=== PATIENT | male | born 1985 | race Caucasian/White ===

== ENCOUNTER 2025-05-08 06:58 | Inpatient (IN) | payer MEDICAID, SELFPAY ==
[2025-05-08] VITALS (15 sets, daily range): BP systolic 119–146; BP diastolic 68–97; PULSE 72–114; RESP 12–22; TEMP 36.8–38.3; O2SAT 95–100; BMI 25.6; BMI 25.1
--- NOTE | ~2025-05-08 | CT_ITS ---
EXAMINATION: CT HAND WITH IV CONTRAST LEFT HISTORY: c/f abscess COMPARISON: Previous x-rays of the left humerus and forearm, CT of the left forearm and left upper extremity venous ultrasound from the same day TECHNIQUE: Axial images through the hand were performed following 85 mL Omnipaque 350 IV contrast. Sagittal and coronal reconstructions on the technologist workstation were performed. FINDINGS: There is diffuse subcutaneous edema. There is fluid seen in the carpal tunnel surrounding the flexor tendon sheaths. No abscess is seen. No fracture, dislocation or x-ray evidence of osteomyelitis. No soft tissue foreign body. Vascular structures are normal. CT/CT hand LT w IV con IMPRESSION: Diffuse subcutaneous edema. Fluid seen in the carpal tunnel surrounding the flexor tendon sheath. No abscess. Electronically signed by: Kely Pink MD 05/08/2025 01:05 PM [facility]
--- NOTE | ~2025-05-08 | XR_ITS ---
EXAMINATION: XR HUMERUS LEFT, XR FOREARM 2 VIEWS LEFT HISTORY: pain and swelling COMPARISON: There are no prior studies available for comparison. FINDINGS: AP and lateral views of the left humerus and forearm are submitted. Osseous mineralization is normal. There is no fracture or dislocation. The visualized portions of the shoulder, elbow, and wrist joint spaces are preserved. There is diffuse soft tissue swelling of the distal arm and proximal forearm. XR/XR forearm LT 2V IMPRESSION: Diffuse soft tissue swelling of the distal arm and proximal forearm. No osseous abnormality is identified. Electronically signed by: Anthony Ortez MD 05/08/2025 08:24 AM [facility]
--- NOTE | ~2025-05-08 | CT_ITS ---
EXAMINATION: CT FOREARM WITH CONTRAST, LEFT CLINICAL INFORMATION: Abscess. Pain. COMPARISON: Previous x-rays from the same day and ultrasound of the veins of the upper extremity from the same day TECHNIQUE: Axial images through the left forearm following 85 mL of Omnipaque 350 IV contrast . Sagittal and coronal reconstructions obtained. This CT examination was performed using dose optimization techniques as appropriate, variously including the following: *Automated exposure control *Adjustment of mA and/or kV according to patient size (this includes techniques or standardized protocols for targeted exams where dose is matched to indication/reason for exam; i.e. extremities or head) *Use of iterative reconstruction technique FINDINGS: Multiloculated fluid collections with enhancing wall in the flexor compartment muscles compatible with abscess(es). This appears more radially distally in the forearm and more centrally proximally in the forearm. This involves the pronator teres, superficial flexor digitorum and flexor carpi radialis muscles. This measures up to 16 cm in length. There is diffuse subcutaneous edema. There is a small lymph node in the upper arm adjacent to the cephalic vein. The joint spaces are normal. No fracture dislocation or joint effusion is seen. There is no x-ray evidence of osteomyelitis. No soft tissue foreign body. Vascular structures are patent. CT/CT forearm LT w IV con IMPRESSION: Large multiloculated abscess(es) in the flexor compartment muscles of the left forearm. Diffuse subcutaneous edema. Electronically signed by: Kely Pink MD 05/08/2025 01:06 PM [facility]
--- NOTE | ~2025-05-08 | XR_ITS ---
EXAMINATION: XR HUMERUS LEFT, XR FOREARM 2 VIEWS LEFT HISTORY: pain and swelling COMPARISON: There are no prior studies available for comparison. FINDINGS: AP and lateral views of the left humerus and forearm are submitted. Osseous mineralization is normal. There is no fracture or dislocation. The visualized portions of the shoulder, elbow, and wrist joint spaces are preserved. There is diffuse soft tissue swelling of the distal arm and proximal forearm. XR/XR humerus LT IMPRESSION: Diffuse soft tissue swelling of the distal arm and proximal forearm. No osseous abnormality is identified. Electronically signed by: Anthony Ortez MD 05/08/2025 08:24 AM [facility]
--- NOTE | ~2025-05-08 | US_ITS ---
EXAMINATION: US UPPER EXTREMITY VEINS LIMITED LEFT HISTORY: pain and swelling, IV drug use COMPARISON: There are no prior studies available for comparison. FINDINGS: There is no evidence of acute DVT in the left upper extremity including the jugular vein, subclavian vein, axillary vein, and cephalic veins. There is limited evaluation of the brachial and basilic veins. The ulnar vein is not seen. There is normal compression, color and spectral Doppler appearance of the visualized deep venous system of the left upper extremity. US/US venous duplex UE LT IMPRESSION: No definite evidence of acute DVT in the left upper extremity. Electronically signed by: Anthony Ortez MD 05/08/2025 09:00 AM [facility]
--- NOTE | 2025-05-08 07:08 | ED.GENADULT ---
HPI - General Adult General Chief complaint: Extremity Injury, Upper Stated complaint: L HAND SWELLING S/P IVD USE,?'S MISSED VEIN Time Seen by Provider: 05/08/25 07:05 Source: patient, RN notes reviewed and old records reviewed Mode of arrival: ambulatory Limitations: no limitations History of Present Illness ED Provider: Kim [facility] narrative: Patient is a 39-year-old right hand dominant male with history of IV drug use presenting to the emergency department with complaint of 2 days of left hand pain and swelling. States that he injected into the distal radius area of his wrist and since then has been having pain and swelling. Unsure fevers. Reporting severe pain, very restless. He reports some tingling to hand. Denies any chest pain, shortness of breath, palpitations. MD complaint: Left arm pain Onset (ago): day(s) Related Data Allergies Allergy/AdvReac Type Severity Reaction Status Date / Time Unable to Assess Allergy Verified 05/08/25 07:13 Review of Systems Review of Systems: As per HPI Yes all other systems are reviewed and are negative Constitutional: Constitutional: Reports as per HPI [facility] Social History Social History Substance Use Type: Crack/Cocaine and Heroin Physical Exam ED Vital Signs: Vital Signs - 24 hr 05/08/25 07:09 05/08/25 07:14 05/08/25 08:52 Temperature 100.0 F 100.0 F 98.8 F Pulse Rate 100 100 80 Respiratory Rate 20 20 20 Blood Pressure 134/70 134/70 123/75 Pulse Oximetry 95 95 98 Oxygen Delivery Method Room Air Room Air Room Air BMI result Body Mass Index 25.6 Vital signs have been reviewed and appear to be correct. Blood pressure normal. Heart rate normal. Respiratory rate normal. Temperature elevated. Oxygen saturation normal. Const General: cooperative and no acute distress Orientation/consciousness: oriented to person, oriented to place, oriented to time and patient oriented x3 HENMT Head: Yes normocephalic and Yes atraumatic Ears: external ears normal General nose exam: Normal external nose present Face and sinus: Yes face symmetric Mouth: oropharynx normal and moist mucous membranes Throat: Yes uvula midline Eyes Pupils: Equal, round and reactive pupils present Neck Neck: Yes normal visual inspection and Yes supple Resp Effort & Inspection: normal respiratory effort and able to speak in complete sentences Auscultation: clear to auscultation bilaterally Cardio Rate: regular rate Rhythm: regular rhythm Heart sounds: S1 normal heart sound present and S2 normal heart sound present GI Palpation (GI): Soft to palpation and nontender Auscultation: normoactive bowel sounds General: Yes no CVA tenderness Back/Spine/Pelvis Back: no CVA tenderness Skin General skin exam: elasticity normal and turgor normal Neuro General: oriented to person, oriented to place, oriented to time, patient oriented x3, moves all extremities, no focal motor deficits and CN's II-XI intact bilaterally Cranial nerves: Yes Equal, round and reactive pupils present Cognition (Neuro): normal cognition Extrem Other: General: Yes full ROM, Yes no pedal edema and Yes no calf tenderness Left upper extremity: shoulder/upper arm Details: tenderness, swelling (to mid upper arm) and warmth, elbow/forearm Details: tenderness, swelling, warmth and distal pulses intact, wrist (puncture wounds distal radial aspect) and hand Details: normal capillary refill, neurosensory exam normal, tenderness (diffuse), vascular exam Details: radial pulse present and normal capillary refill, abnormal ROM of finger (decreased ROM due to pain and swelling), warmth, swelling and puncture wound (multiple); abnormal to inspection Medications Administered Generic Name Dose Route Start Last Admin Trade Name Freq PRN Reason Stop Dose Admin Vancomycin HCl 2,000 mg in 500 mls @ 250 mls/hr 05/08/25 07:30 05/08/25 07:43 Vancomycin/Ns IV 05/08/25 09:29 250 mls/hr ONCE ONE Administration Discontinued Medications Generic Name Dose Route Start Last Admin Trade Name Freq PRN Reason Stop Dose Admin Hydromorphone HCl 1 mg 05/08/25 07:34 05/08/25 07:43 Hydromorphone Hcl 1 Mg/Ml Syringe IVPUSH 05/08/25 07:35 1 mg ONCE ONE Administration Protocol Acetaminophen 1,000 mg in 100 mls @ 400 mls/hr 05/08/25 07:34 05/08/25 08:13 Ofirmev IV 05/08/25 07:48 Infused ONCE ONE Infusion Ketamine HCl 25 mg 05/08/25 07:36 05/08/25 08:31 Ketamine Hcl/Ns 100 Mg/10 Ml Syringe IVPUSH 05/08/25 07:37 Not Given ONCE ONE Ketamine HCl 25 mg 05/08/25 08:15 05/08/25 08:27 Ketamine Hcl/Ns 50 Mg/5 Ml Syringe IVPUSH 05/08/25 08:16 25 mg ONCE ONE Administration Medical Decision Making Medical Decision Making [facility] Narrative: Patient is a 39-year-old right hand dominant male with history of IV drug use presenting to the emergency department with complaint of 2 days of left hand pain and swelling. On exam patient is awake, A+Ox3, borderline tachycardic, borderline febrile, normal neurological exam without focal deficits, physical exam findings as above. Given reported symptoms and physical exam findings, initial differential includes but is not limited to cellulitis, deep space infection, DVT, soft tissue abscess, sepsis/bacteremia. Low suspicion for compartment syndrome at this time as patient has full sensation distally, low suspicion for necrotizing fasciitis currently as patient is without notable skin necrosis, bullae, cutaneous numbness, crepitus. Labs notable for leukocytosis with elevated ESR and CRP, normal lactic. X-ray forearm and upper arm notable for diffuse soft tissue swelling without evidence of osteomyelitis or deep space infection. Left upper extremity ultrasound is without evidence of DVT. My interpretation is in agreement with the radiologist's interpretation. IV antibiotics orered as well as pain control. Inpatient admission accepted by FRANCISCO Quinonez. Differential Diagnosis Differential Diagnoses: The differential diagnosis associated with the presentation includes as per [facility] Admission/Observation Consideration of admission/observation: Escalation of care including admission/observation considered Consult Healthcare Provider Management of the patient was discussed with: Hospitalist Lab Data 05/08/25 07:26 05/08/25 07:26 Labs: Lab Results 05/08/25 Range/Units 07:26 WBC 15.6 H (4.8-10.8) X10*3/uL RBC 3.77 L (4.60-5.80) X10*6/uL Hgb 8.3 L (14.0-18.0) g/dl Hct 26.3 L (42.0-52.0) % MCV 69.8 L (80.0-98.0) fL MCH 22.0 L (27.0-33.0) pg MCHC 31.6 (31.0-36.0) g/dl RDW 15.2 (11.0-16.0) % Plt Count 171 (160-400) X10*3/uL MPV 8.4 L (9.4-12.4) fL Immature Gran % (Auto) 2.7 H (0.0-0.4) % Neut % (Auto) 79.7 H (45-73) % Lymph % (Auto) 6.7 L (20-40) % [place] % (Auto) 10.7 (2-11) % Eos % (Auto) 0.1 (0-4) % Baso % (Auto) 0.1 (0-2) % Lymph # (Auto) 1.1 L (1.2-4.9) X10*3/uL [place] # (Auto) 1.7 H (0.1-1.2) X10*3/uL Eos # (Auto) 0.0 (0.0-0.4) X10*3/uL Baso # (Auto) 0.0 (0.0-0.2) X10*3/uL Abs Immat Gran (auto) 0.42 H (0.00-0.03) X10*3/uL Absolute Neuts (auto) 12.4 H (2.0-8.3) x10*3/uL Absolute Nucleated RBC 0.000 (0.0-0.012) X10*3/uL Nucleated RBC % (auto) 0.0 (0.0-0.2) /100WBC Smear Tech's Comments VERIFIED ESR 74 H (1-15) MM/HR Sodium 131 L (135-145) mmol/L Potassium 3.6 (3.3-5.1) mmol/L Chloride 102 (96-108) mmol/L Carbon Dioxide 24 (22-29) mmol/L Anion Gap 9 L (12-20) BUN 7 L (9-16) mg/dL Creatinine 0.65 (0.5-1.4) mg/dL Estim Creat Clear Calc 155.9 Estimated GFR > 60 Random Glucose 131 H (60-115) mg/dL Lactic Acid 1.4 (0.5-2.0) mmol/L Calcium 8.8 (8.4-10.2) mg/dL Total Bilirubin 0.5 (0.0-1.0) mg/dL AST 43 H (5-37) U/L ALT 32 (0-40) U/L Alkaline Phosphatase 93 (39-117) U/L C-Reactive Protein 24.83 H (< or = 0.50) mg/dL Total Protein 6.3 L (6.5-8.0) g/dL Albumin 3.3 L (3.5-5.0) g/dL External Record Review External record reviewed: Inpatient record, Office record and Outpatient record Prescription Management I considered prescription management with: Antibiotic Critical Care Time Critical Care Time Critical Care Time: Yes Total Critical Care Time: 49 Attestation: I have personally provided critical care time exclusive of time spent on separately billable procedures. Time includes review of lab data, radiology results, discussion with consultants, and monitoring for potential decompensation. Intervention performed as documented. Discharge Plan Discharge Patient Disposition: Admitted As Inpatient Print Language: Kazakh
[2025-05-08 07:37] LABS: Hematocrit 26.3 % (42.0-52.0); Hemoglobin 8.3 g/dl (14.0-18.0); Imm Gran Abs Auto 0.42 X10*3/uL (0.00-0.03); Imm Gran Pct Auto 2.7 % (0.0-0.4); Lymphocytes Absolute Auto 1.1 X10*3/uL (1.2-4.9); MANUAL DIFF FLAG SCAN; Mean Corpuscular HGB Conc 31.6 g/dl (31.0-36.0); Mean Corpuscular Hemoglobin 22.0 pg (27.0-33.0); Mean Corpuscular Volume 69.8 fL (80.0-98.0); NRBC Abs Auto 0.000 X10*3/uL (0.0-0.012); NRBC Pct Auto 0.0 /100WBC (0.0-0.2); Platelet Count 171 X10*3/uL (160-400); Red Blood Count 3.77 X10*6/uL (4.60-5.80); SCAN SMEAR FLAG 1; White Blood Count 15.6 X10*3/uL (4.8-10.8)
[2025-05-08] MEDS: vancomycin/NS 2,000 MG/500 ML PLAST..BAG 250 MG IV (07:43)
--- NOTE | 2025-05-08 07:48 | PC.NURSE ---
Patient presents to ED c/o left hand swollen Patient relapsed 2 months ago Patient has been injecting heroin into left hand 2 days ago pain and swelling began Left hand is red,swollen, and warm. Swelling extends up left arm past elbow oral temp 100.0 +CMS limited ROM d/t swelling patient notes some numbness IV 18G RAC blood collected / sent provider in to see patient Patient awaiting xrays
[2025-05-08 08:01] LABS: Alanine Aminotransferase 32 U/L (0-40); Albumin Level 3.3 g/dL (3.5-5.0); Alkaline Phosphatase 93 U/L (39-117); Anion Gap 9 (12-20); Aspartate Amino Transferase 43 U/L (5-37); Blood Urea Nitrogen 7 mg/dL (9-16); Calcium 8.8 mg/dL (8.4-10.2); Carbon Dioxide 24 mmol/L (22-29); Chloride 102 mmol/L (96-108); Creatinine Clr Calc Pharmacy 155.9; Estimated Glomerular Filt Rate > 60; Potassium 3.6 mmol/L (3.3-5.1); Sodium 131 mmol/L (135-145); Total Protein 6.3 g/dL (6.5-8.0)
[2025-05-08] MEDS: Ketamine HCl/NS 50 MG/5 ML SYRINGE 25 MG IVPUSH (08:27)
--- NOTE | 2025-05-08 09:59 | PM.IMHP ---
History of Present Illness Date of Service: 05/08/25 Attending physician on admission: Milka Mcghee Chief Complaint: left arm pain This is a 39 year old male with history of IVDU who comes to the emergency department with pain in his left arm. Patient reports 12 years of sobriety and recently relapsed 2-3 weeks ago. He has been injecting both heroin and cocaine. For the past few days he has noted increase in redness and swelling of his left arm. He has had increased pain and decreased range of motion. He denies any associated fever or chills. His pain, redness and swelling continued to progress and today he presented for evaluation. On arrival he had tachycardia, low-grade fever. Lab work significant for elevated white blood cell count of 15.6. Lactic acid within normal limits at 1.4. Inflammatory markers including ESR and CRP were elevated with ESR of 74 and CRP of 24.8. Plan film xray of the humerous and forearm showed diffuse soft tissue swelling of the distal arm and proximal forearm. An ultrasound was negative for DVT in the left upper extremity. Patient received IV Zosyn and vancomycin as well as IV Dilaudid and ketamine. patient reports significant pain. Review of Systems Review of Systems: Yes all other systems are reviewed and are negative Constitutional: Constitutional: Denies chills and Denies fever(s) Cardiovascular: Cardiovascular: Denies chest pain and Denies palpitations Gastrointestinal: Gastrointestinal: Denies abdominal pain, Denies diarrhea, Denies nausea and Denies vomiting Endocrine: Endocrine: Denies palpitations [facility] Medical History IVDU (intravenous drug user) Social History Smoked in Last 30 Days: Yes Use of substances other than those prescribed or required for medical reasons: Yes Substance Use Type: Crack/Cocaine and Heroin Substance Use Frequency: Daily Advance Directives: No Advance Directives Information Provided: No Do you have a plan to hurt others: No Plan Meds Allergies Allergy/AdvReac Type Severity Reaction Status Date / Time Unable to Assess Allergy Verified 05/08/25 07:13 Active Medications: Current Medications Acetaminophen (Acetaminophen 325 Mg Tablet) 650 mg PO Q6H PRN PRN Reason: Pain, Mild 1-3,fever,headache Calcium Carbonate (Calcium Carbonate 750 Mg Tab.Chew) 750 mg PO Q4H PRN PRN Reason: Heartburn Enoxaparin Sodium (Enoxaparin Sodium 40 Mg/0.4 Ml Syringe) 40 mg SUBCUT Q24H CHARLIE Hydromorphone HCl (Hydromorphone Hcl 1 Mg/Ml Syringe) 0.5 mg IVPUSH Q3H PRN; Protocol PRN Reason: Pain, Severe (Pain Scale 7-10) Lactated Ringer's (Lr) 1,000 mls @ 125 mls/hr IVCONT .Q8H CHARLIE Piperacillin Sod/Tazobactam (Sod 3.375 gm/ Sodium Chloride) 50 mls @ 100 mls/hr IV Q6H CHARLIE Magnesium Hydroxide (Milk Of Magnesia 30 Ml Oral.Susp) 30 ml PO DAILY PRN PRN Reason: Constipation Melatonin (Melatonin 3 Mg Tablet) 6 mg PO BEDTIME PRN PRN Reason: Insomnia Ondansetron HCl (Ondansetron Hcl 4 Mg/2 Ml Vial) 4 mg IVPUSH Q8H PRN PRN Reason: Nausea and Vomiting Oxycodone HCl (Oxycodone Hcl Immed Release 5 Mg Tablet) 5 mg PO Q6H PRN PRN Reason: Pain, Moderate(Pain Scale 4-6) Pharmacy Consult (Consult Rx Vancomycin Dosing) 1 each MISCELLANE DAILY PRN PRN Reason: Consult order Sodium Chloride (0.9 % Sodium Chloride Flush 3 Ml Syringe) 3 ml IVFLUSH QSHIFT [facility] Home Medications ?Medication ?Instructions ?Recorded ?Confirmed ?Last Taken ?Type No Known Home Meds 05/08/25 Unknown History Physical Exam Vital Signs and Narrative: Vital Signs: Last Vital Signs Temp 98.8 F 05/08/25 08:52 Pulse 80 05/08/25 08:52 Resp 20 05/08/25 08:52 BP 123/75 05/08/25 08:52 Pulse Ox 98 05/08/25 08:52 O2 Del Method Room Air 05/08/25 08:52 BMI result Body Mass Index 25.6 Const: Other: appears uncomfortable General: alert and awake Nutritional Appearance: average body habitus Orientation/consciousness: patient oriented x3 Resp: Effort & Inspection: normal respiratory effort, able to speak in complete sentences, no respiratory distress and no use of accessory muscles Cardio: Rate: tachycardic GI: Palpation (GI): Soft to palpation Skin: Other: Left arm with extensive edema from mid-humerus down to hand; erythema extends over the same area covering >50% of the LUE; limited ROM at the elbow and wrist. no obvious area of fluctuance; numerous injection sites at left hand and AC Neuro: General: patient oriented x3 Extrem: Other: able to move all 4 extremities; limitations to LUE as above Results Labs 05/08/25 07:26 05/08/25 07:26 Labs: Laboratory Results - last 24 hr 05/08/25 07:26 MCV 69.8 L MCH 22.0 L MCHC 31.6 RDW 15.2 Plt Count 171 MPV 8.4 L Immature Gran % (Auto) 2.7 H Neut % (Auto) 79.7 H Lymph % (Auto) 6.7 L [place] % (Auto) 10.7 Eos % (Auto) 0.1 Baso % (Auto) 0.1 Lymph # (Auto) 1.1 L [place] # (Auto) 1.7 H Eos # (Auto) 0.0 Baso # (Auto) 0.0 Abs Immat Gran (auto) 0.42 H Absolute Neuts (auto) 12.4 H Absolute Nucleated RBC 0.000 Nucleated RBC % (auto) 0.0 Smear Tech's Comments VERIFIED ESR 74 H Anion Gap 9 L Estim Creat Clear Calc 155.9 Estimated GFR > 60 Random Glucose 131 H Lactic Acid 1.4 Calcium 8.8 Total Bilirubin 0.5 AST 43 H ALT 32 Alkaline Phosphatase 93 C-Reactive Protein 24.83 H Total Protein 6.3 L Albumin 3.3 L Imaging Radiologist's Impressions: Impressions Forearm X-Ray 05/08/25 08:15 IMPRESSION: Diffuse soft tissue swelling of the distal arm and proximal forearm. No osseous abnormality is identified. Electronically signed by: Anthony Ortez MD 05/08/2025 08:24 AM EST RP Humerus X-Ray 05/08/25 08:18 IMPRESSION: Diffuse soft tissue swelling of the distal arm and proximal forearm. No osseous abnormality is identified. Electronically signed by: Anthony Ortez MD 05/08/2025 08:24 AM EST RP Venous Duplex 05/08/25 08:31 IMPRESSION: No definite evidence of acute DVT in the left upper extremity. Electronically signed by: Anthony Ortez MD 05/08/2025 09:00 AM EST RP Assessment and Plan (1) Cellulitis of arm, left: Status: Acute Plan This is a 39 year old male with history of IVDU who presents with several days of left arm and hard swelling, redness and pain Sepsis due to Left arm/hand cellulitis due to underlying IVDU with recent injection of heroin/cocaine into affected extremity no severe features area of cellulitis involves entire hand and extends to the upper arm covering more then 50 % of the LUE due to extensive swelling, will obtain CT scan to rule out deeper infection no evidence of compartment syndrome at this time continue IV vanco and zosyn started in the ED ortho consult pain control Mild rhabdomyolysis cpk 532 renal function wnl IVF, repeat in AM Mild Hyponatremia sodium 131, trend levels Microcytic anemia unknown chronicity with no baseline H/H for comparison above transfusion threshold at this time check iron studies follow CBC IVDU addiction medicine consult dvt ppx - lovenox code status - full code Patient will likely require 2 midnight stay in the hospital for management of left hard/arm cellulitis requring IV antibiotics and specialist evaluation Quality Stroke Does the patient have a stroke diagnosis?: No VTE Prior VTE?: No VTE Risk Level:: Medical - moderate - high VTE Device Contraindication: N/A - Device Ordered VTE Drug Contraindication: N/A - Med Ordered
[2025-05-08] MEDS: Lactated Ringers 1,000 ML 125 ML IVCONT ×2 (10:06→17:08)
--- NOTE | 2025-05-08 10:18 | PHA.PROG ---
Admission Date/Time: May 08, 2025 09:34 Indication: Skin Weight in k kg Adjusted body weight in Kg: [place] body weight in Kg: Obesity Dosing Indication % IBW: Serum Creatinine - Last 168 Hours 05/08/25 07:26 Creatinine 0.65 Estimated CrCl and GFR - Last 168 Hours 05/08/25 07:26 Estim Creat Clear Calc 155.9 Estimated GFR > 60 Vancomycin Loading Dose: 2000 mg Current Vancomycin Dosing Regimen: 1250mg q12h Vancomycin Monitoring using AUC goal of 400 - 600 range with trough as surrogate marker: 459 mg/L*hr or trough 13.2 mg/L Date and Time for next Vancomycin Level to be drawn: 05/09/25 @ 1700 Pharmacist Comments on Vancomycin Plan: Vancomycin dosing will take advantage of [employer] as a clinical decision support tool that uses Bayesian modeling to calculate individual patient's pharmacokinetic parameters and forecast the patient's drug concentration time course with the target goal AUC 24 range of 400 - 600 mg/L/hr.
[2025-05-08 11:01] LABS: Iron 8 mcg/dL (45-160); Percent Iron Saturation 3 % (15-50); Total Iron Binding Capacity 255 mcg/dL (228-428); Unsaturated Iron Binding 247 ug/dL
[2025-05-08 11:15] LABS: Ferritin 182 ng/mL (20-250)
--- NOTE | 2025-05-08 12:01 | PM.CNOR ---
History of Present Illness HPI Consult date: 05/08/25 Chief complaint: cellulitis Narrative: Patient is a 39-year-old male with past medical history of IV drug use who presents to the emergency department for proximally 2 days of significant pain, redness, swelling of the left wrist and forearm Patient reports that approximately 3-4 days ago, he did attempt injection into this area, and over the last 2-3 days he has noticed worsening redness, swelling, pain in the left wrist, that has now extending to the left forearm all the way up to the elbow Patient states that he is in severe pain in the left wrist, and is unable to move the left wrist, elbow, hand without pain Patient states that he does have some slightly diminished sensation in the left hand 2+ radial pulses in the ED Capillary refill brisk in the ED No other acute complaints or concerns at this time Review of Systems Review of Systems: Yes all other systems are reviewed and are negative PMFSH Past Medical History Medical History IVDU (intravenous drug user) Social History Social History Patient Tobacco Use Status: Tobacco use Unknown Smoked in Last 30 Days: Yes Use of substances other than those prescribed or required for medical reasons: Yes Substance Use Type: Crack/Cocaine and Heroin Substance Use Frequency: Daily Advance Directives: No Advance Directives Information Provided: No Do you have a plan to hurt others: No Plan Nutrition Risks: No Nutritional Risk Meds Allergies Allergy/AdvReac Type Severity Reaction Status Date / Time Unable to Assess Allergy Verified 05/08/25 07:13 Active Medications: Current Medications Acetaminophen (Acetaminophen 325 Mg Tablet) 650 mg PO Q6H PRN PRN Reason: Pain, Mild 1-3,fever,headache Calcium Carbonate (Calcium Carbonate 750 Mg Tab.Chew) 750 mg PO Q4H PRN PRN Reason: Heartburn Enoxaparin Sodium (Enoxaparin Sodium 40 Mg/0.4 Ml Syringe) 40 mg SUBCUT Q24H CHARLIE Last Admin: 05/08/25 11:29 Dose: 40 mg Hydromorphone HCl (Hydromorphone Hcl 1 Mg/Ml Syringe) 0.5 mg IVPUSH Q3H PRN; Protocol PRN Reason: Pain, Severe (Pain Scale 7-10) Lactated Ringer's (Lr) 1,000 mls @ 125 mls/hr IVCONT .Q8H [facility] Last Admin: 05/08/25 10:06 Dose: 125 mls/hr Piperacillin Sod/Tazobactam (Sod 3.375 gm/ Sodium Chloride) 50 mls @ 100 mls/hr IV Q6H [facility] Vancomycin HCl 1,250 mg/ (Sodium Chloride) 250 mls @ 166.667 mls/hr IV Q12H [facility] Magnesium Hydroxide (Milk Of Magnesia 30 Ml Oral.Susp) 30 ml PO DAILY PRN PRN Reason: Constipation Melatonin (Melatonin 3 Mg Tablet) 6 mg PO BEDTIME PRN PRN Reason: Insomnia Ondansetron HCl (Ondansetron Hcl 4 Mg/2 Ml Vial) 4 mg IVPUSH Q8H PRN PRN Reason: Nausea and Vomiting Oxycodone HCl (Oxycodone Hcl Immed Release 5 Mg Tablet) 5 mg PO Q6H PRN PRN Reason: Pain, Moderate(Pain Scale 4-6) Pharmacy Consult (Consult Rx Vancomycin Dosing) 1 each MISCELLANE DAILY PRN PRN Reason: Consult order Sodium Chloride (0.9 % Sodium Chloride Flush 3 Ml Syringe) 3 ml IVFLUSH QSHIFT [facility] Home Medications ?Medication ?Instructions ?Recorded ?Confirmed ?Last Taken ?Type No Known Home Meds 05/08/25 Unknown History Physical Exam Vital Signs: Vital Signs: Last Vital Signs Temp 98.8 F 05/08/25 10:09 Pulse 72 05/08/25 10:09 Resp 16 05/08/25 10:09 BP 119/79 05/08/25 10:09 Pulse Ox 98 05/08/25 10:09 O2 Del Method Room Air 05/08/25 10:09 BMI result Body Mass Index 25.6 Extrem: Other: Patient is alert, oriented, and in no acute distress. Neuro: Diminished sensation of the tips of all digits of the left hand at this time Vascular: Cap refill brisk Pain: Very significant tenderness to palpation of the volar aspect of the left wrist extending into the left forearm Mild tenderness to palpation noted of the dorsal aspect of the left wrist and forearm No pain with axial loading of the left wrist No tenderness to palpation of the digits of the left hand ROM: Patient is able to flex and extend the digits of the left hand, is unable to make a closed fist, likely due to swelling Skin: Small abrasions noted throughout the left wrist and forearm General: Very significant edema and erythema noted of the left wrist and forearm, worst on the volar aspect and distal This edema and erythema does extend all the way up to the proximal arm Psych: Appears grossly normal Affect normal Attitude cooperative Results Labs 05/08/25 07:26 05/08/25 07:26 Labs: Abnormal lab results 05/08/25 Range/Units 07:26 WBC 15.6 H (4.8-10.8) X10*3/uL RBC 3.77 L (4.60-5.80) X10*6/uL Hgb 8.3 L (14.0-18.0) g/dl Hct 26.3 L (42.0-52.0) % MCV 69.8 L (80.0-98.0) fL MCH 22.0 L (27.0-33.0) pg MPV 8.4 L (9.4-12.4) fL Immature Gran % (Auto) 2.7 H (0.0-0.4) % Neut % (Auto) 79.7 H (45-73) % Lymph % (Auto) 6.7 L (20-40) % Lymph # (Auto) 1.1 L (1.2-4.9) X10*3/uL [place] # (Auto) 1.7 H (0.1-1.2) X10*3/uL Abs Immat Gran (auto) 0.42 H (0.00-0.03) X10*3/uL Absolute Neuts (auto) 12.4 H (2.0-8.3) x10*3/uL ESR 74 H (1-15) MM/HR Sodium 131 L (135-145) mmol/L Anion Gap 9 L (12-20) BUN 7 L (9-16) mg/dL Random Glucose 131 H (60-115) mg/dL Iron 8 L (45-160) mcg/dL % Saturation 3 L (15-50) % AST 43 H (5-37) U/L Total Creatine Kinase 532 H (38-174) U/L C-Reactive Protein 24.83 H (< or = 0.50) mg/dL Total Protein 6.3 L (6.5-8.0) g/dL Albumin 3.3 L (3.5-5.0) g/dL H & H 05/08/25 Range/Units 07:26 Hgb 8.3 L (14.0-18.0) g/dl Hct 26.3 L (42.0-52.0) % All other labs normal. Diagnostic results Wrist/Hand x-ray: report reviewed and image reviewed Wrist/Hand CT: report reviewed and image reviewed Assessment and Plan (1) Abscess of left forearm: Status: Acute Plan 1. Large abscess of the left forearm Ongoing for approximately 2-3 days Imaging is reviewed and case was discussed with Dr. Mariano, who was available to see the patient with me today, and a collaborative treatment plan was formed: I educated the patient about the condition. I discussed both operative and nonoperative treatment options. The patient would like to proceed with surgery. The risks and benefits of operative treatment were discussed with the patient and the patient wishes to proceed with surgery. These risks include, but are not limited to, risk of damage to blood vessels, nerves, tendons, infection, recurrence, incomplete relief of preoperative symptoms, persistent pain, possible need for further surgery, and the risks associated with regional blocks and/or anesthesia. Plan is to take the patient to the operating room at some point in the next few weeks for the following procedures: 1. Left arm I and D under general anesthesia Patient has not eaten or drank anything since approximately 02:00, NPO for surgery later today Continue IV antibiotics in the meantime Procedures Date of Service Date of Service: 05/08/25
--- NOTE | 2025-05-08 13:25 | MHC.SHP ---
Pre-Procedural Eval Section A - 24 Hr Update-Section A only Date of Service: 05/08/25 The patient is an INPATIENT: Yes Changes since office visit: Yes Cold of Flu in the past 2 weeks, Yes New Medical Problems, Yes Changes in Medication and Yes Patient answered all questions The patient has been examined within 24 hours of the surgical procedure. The History & Physical has been completed within 30 days and I have reviewed it.: Yes Section B - Complete if H&P > 30 days Chief Complaint: cellulitis Allergies: Allergies Allergy/AdvReac Type Severity Reaction Status Date / Time Unable to Assess Allergy Verified 05/08/25 07:13 Exam Exam Comment: Patient seen and evaluated in the emergency department. Patient with IV drug use related infection of the left upper extremity. He was alert and oriented with some anxiety secondary to pain in the left upper extremity. Left upper extremity was quite swollen from just distal to the antecubital fossa down to the hand. Hand itself was soft. More [place] edema noted in the forearm both volarly and dorsally. When patient was asked to identify area of maximal tenderness he identified a longitudinal area along the volar radial forearm with maximal tenderness more distally. No pain with axial loading of the wrist. No pain with elbow range of motion. CT scan left upper extremity today: Fluid collection noted deep in the volar forearm extending from more superficially near the FCR tendon extending deep along the volar aspect of the radius deep to the flexor muscle bellies up to the mid forearm Please see radiology read for additional information as necessary Plan I have reviewed the history and physical and performed a pertinent physical examination on my patient. No changes have occurred unless specified. Assessment and plan: 1. Left forearm abscess, deep and volar radial I educated the patient about this condition we discussed operative and non operative treatment options I am recommending surgery The risks and benefits of operative treatment were discussed with the patient and the patient wishes to proceed with surgery. These risks include, but are not limited to risk of damage to blood vessels, nerves, tendons, infection, recurrence, incomplete relief of preoperative symptoms, persistent pain, possible need for further surgery and the risks associated with regional blocks and anesthesia. The plan is to take the patient to the operating room today for the following procedures: 1. Right forearm I and D 2. [ ] All of the preoperative paperwork including the consent was filled out today. All the patient's questions were answered. Time Spent With Patient Time: Total time managing care of this patient today ____ minutes.
--- NOTE | 2025-05-08 13:30 | W.PM.OPN ---
Operative Note Operative Note Date of Service: 05/08/25 Narrative: Operative Note Narrative: Preop diagnosis: 1. Left forearm abscess, volar radial and deep, secondary to IV drug use Postop diagnosis: Same Procedure: 1. Left volar forearm I and D Surgeon: Makenzie Mariano MD Election Judge: Chris SINGH Anesthesia: General Anesthesia Findings: 20 mL Of foul-smelling creamy yellow hood purulence from the volar forearm compartment between the flexor muscles and the volar aspect of the distal 3/4 of the radius Implants: Half-inch [place] drain Tourniquet time: 35 minutes EBL: 5.0 ml Specimen: Cultures of the purulence Drains: None Complications: None Disposition: Brought to the recovery room in stable condition Plan: Patient to be admitted to the hospitalist service for IV antibiotics Check cultures and adjust antibiotics Wound check and drain removal in 1-2 days by Orthopedics. Daily dressing changes by nursing after that should be sufficient OT hand therapy in 1-2 days to work on finger range of motion Indications: The patient is a 39 year old man with left volar forearm abscess secondary to IV drug use . The risks and benefits of operative treatment, including but not limited to risk of damage to blood vessels, nerves, tendons, infection, recurrence, persistent pain or numbness, incomplete resolution of preoperative symptoms, or need for further surgery were discussed with the patient and they wished to proceed with surgery. Procedure: Once consent was obtained patient was brought back to the operating suite and placed in the operating table in a supine position. . Perioperative antibiotics and anesthesia was administered by the anesthesia team. A tourniquet was applied to the proximal aspect of the left upper extremity and the limb was prepped and draped in a standard surgical fashion. The limb was elevated and the tourniquet inflated to 250 mm of mercury for a total tourniquet time of 35 minutes. I made a 9 cm longitudinal incision over the distal aspect of the left FCR tendon on the volar aspect of the left forearm. The incision was made through the skin to the subcutaneous tissues using a 15. Blade. I then dissected through the volar forearm fascia just deep to the FCR tendon using tenotomy scissors under direct visualization. Just deep to the volar forearm fascia we encountered creamy yellow hood purulence in abundance. The abscess cavity ran between the volar aspect of the radius and the overlying flexor muscles and tendons along the distal 3/4 of the length of the radius. We sucked out 20 mL of this purulent material and did culture it. It was very malodorous. We then copiously irrigated the abscess cavity with a about 2000 mL of normal saline. The tourniquet was deflated and hemostasis obtained with a brief period of local pressure and bipolar electrocautery. We placed a half-inch [place] drain within the abscess cavity lying between the shaft of the radius in the overlying flexor muscle and tendons. The skin edges were loosely reapproximated with 3-0 and 4-0 Prolene suture The wound was infiltrated with some 1% lidocaine with epinephrine for postop pain control and a sterile dressing was applied. The patient appears to have tolerated the procedure well and with no complications. All digits were well vascularized conclusion of the case.
--- NOTE | 2025-05-08 14:15 | HO.ANESPROP2 ---
HPI - Anesthesia Eval Consult details Narrative: 39 yo M presenting for left arm I&D. 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 Last use of both drugs less than 12 hours ago. [facility] Active Problems Active Problems: All Active Problems Abscess of left forearm (Acute) Cellulitis of arm, left (Acute) Past Medical History Medical History IVDU (intravenous drug user) Family History Family history of problems with anesthesia: No Surgical History History of Problems with Anesthesia: No Social History Social History Household Members: Friend(s) Housing: Homeless Do you presently have visiting nurse or other home services: No Patient Tobacco Use Status: Never used Tobacco e-Cigarette/Vaping Use: Never Used Substance Use Type: Crack/Cocaine and Heroin Meds Allergies Allergy/AdvReac Type Severity Reaction Status Date / Time No Known Allergies Allergy Verified 05/08/25 13:53 Active Medications: Current Medications Acetaminophen (Acetaminophen 325 Mg Tablet) 650 mg PO Q6H PRN PRN Reason: Pain, Mild 1-3,fever,headache Calcium Carbonate (Calcium Carbonate 750 Mg Tab.Chew) 750 mg PO Q4H PRN PRN Reason: Heartburn Enoxaparin Sodium (Enoxaparin Sodium 40 Mg/0.4 Ml Syringe) 40 mg SUBCUT Q24H [facility] Last Admin: 05/08/25 11:29 Dose: 40 mg Haloperidol Lactate (Haloperidol Lactate 5 Mg/Ml Vial) 1 mg IVPUSH ONCE PRN PRN Reason: intractable nausea Stop: 05/08/25 20:15 Hydromorphone HCl (Hydromorphone Hcl 1 Mg/Ml Syringe) 0.5 mg IVPUSH Q3H PRN; Protocol PRN Reason: Pain, Severe (Pain Scale 7-10) Hydromorphone HCl (Hydromorphone Hcl 0.5 Mg/0.5 Ml Syringe) 0.5 mg IVPUSH Q5M PRN PRN Reason: Pain, Moderate to Severe (Pain Scale 4-10) Stop: 05/08/25 20:14 Lactated Ringer's (Lr) 1,000 mls @ 125 mls/hr IVCONT .Q8H [facility] Last Admin: 05/08/25 10:06 Dose: 125 mls/hr Piperacillin Sod/Tazobactam (Sod 3.375 gm/ Sodium Chloride) 50 mls @ 100 mls/hr IV Q6H [facility] Vancomycin HCl 1,250 mg/ (Sodium Chloride) 250 mls @ 166.667 mls/hr IV Q12H [facility] Magnesium Hydroxide (Milk Of Magnesia 30 Ml Oral.Susp) 30 ml PO DAILY PRN PRN Reason: Constipation Melatonin (Melatonin 3 Mg Tablet) 6 mg PO BEDTIME PRN PRN Reason: Insomnia Naloxone HCl (Naloxone Hcl 0.4 Mg/Ml Vial) 0.04 mg IVPUSH Q5M PRN PRN Reason: Excessive sedation or RR < 8 Ondansetron HCl (Ondansetron Hcl 4 Mg/2 Ml Vial) 4 mg IVPUSH Q8H PRN PRN Reason: Nausea and Vomiting Oxycodone HCl (Oxycodone Hcl Immed Release 5 Mg Tablet) 5 mg PO Q6H PRN PRN Reason: Pain, Moderate(Pain Scale 4-6) Pharmacy Consult (Consult Rx Vancomycin Dosing) 1 each MISCELLANE DAILY PRN PRN Reason: Consult order Sodium Chloride (0.9 % Sodium Chloride Flush 3 Ml Syringe) 3 ml IVFLUSH QSHIFT [facility] Home Medications ?Medication ?Instructions ?Recorded ?Confirmed ?Last Taken ?Type No Known Home Meds 05/08/25 Unknown History Exam Exam Date and Time: 05/08/25 1345 Height,Weight and Vital Signs: Height 5 ft 10 in Weight 79.4 kg Last Vital Signs Temp 98.2 F 05/08/25 13:40 Pulse 83 05/08/25 13:40 Resp 22 H 05/08/25 13:40 BP 138/97 H 05/08/25 13:40 Pulse Ox 100 05/08/25 13:40 O2 Del Method Room Air 05/08/25 13:40 Pertinent Lab Results Pertinent Lab Results: Laboratory Tests 05/08/25 07:26 WBC 15.6 H RBC 3.77 L Hgb 8.3 L Hct 26.3 L MCV 69.8 L MCH 22.0 L MCHC 31.6 RDW 15.2 Plt Count 171 MPV 8.4 L Immature Gran % (Auto) 2.7 H Neut % (Auto) 79.7 H Lymph % (Auto) 6.7 L [place] % (Auto) 10.7 Eos % (Auto) 0.1 Baso % (Auto) 0.1 Lymph # (Auto) 1.1 L [place] # (Auto) 1.7 H Eos # (Auto) 0.0 Baso # (Auto) 0.0 Abs Immat Gran (auto) 0.42 H Absolute Neuts (auto) 12.4 H Absolute Nucleated RBC 0.000 Nucleated RBC % (auto) 0.0 Smear Tech's Comments VERIFIED ESR 74 H Sodium 131 L Potassium 3.6 Chloride 102 Carbon Dioxide 24 Anion Gap 9 L BUN 7 L Creatinine 0.65 Estim Creat Clear Calc 155.9 Estimated GFR > 60 Random Glucose 131 H Lactic Acid 1.4 Calcium 8.8 Iron 8 L TIBC 255 % Saturation 3 L Unsat Iron Binding 247 Ferritin 182 Total Bilirubin 0.5 AST 43 H ALT 32 Alkaline Phosphatase 93 Total Creatine Kinase 532 H C-Reactive Protein 24.83 H Total Protein 6.3 L Albumin 3.3 L Airway Mallampati Class: I TM Dist: >3cm Neck ROM: Full Loose/Missing/Broken Teeth: No (patient denies any loose or broken teeth) Heart: S1S2 Lungs: CTAB Assessment and Plan Assessment Anesthesia Assessment: Anesthesia Plan Discussed and Chart Reviewed Final Anesthetic Review Family History of Problems with Anesthesia: No History of Problems with Anesthesia: No NPO: Yes ASA Class: III and Emergency Final Preanesthetic Review: No Changes in Pt Med Stat, Meds/Allgs Chart Reviewed, Consent Obtained/Reviewed and Anes Risks/Benef Reviewed Patient Risk: Intermediate Procedure Risk: Low Anesthetic Plan Anesthetic Plan: GA and Agree w/ Assess. and Plan Disposition: Standard PACU
--- NOTE | 2025-05-08 14:52 | HO.SKINPHOTO ---
Location: Left Arm Category: Cellulitis, edema Location: Left Hand Category: Puncture wounds, cellulitis Location: Right morgan Category: Puncture wound, healed abrasions
--- NOTE | 2025-05-08 16:16 | HO.ADDICTCON ---
History of Present Illness Date of Service: 05/08/2025 Chief Complaint: cellulitis Reason for Consult: recurrence of opiate use Sources of Information: chart reviewed HPI Narrative: information obtained via chart review as patient was unable to participate secondary to level of sedation Patient is a 39 year old male who presented to [facility] ED c/o pain to his right arm secondary to IVDU. Medically admitted with cellulitis and abscess of the forearm. Admission note states that patient reported being in recovery for 12 years until a few weeks ago when began to use opiates and cocaine again, IV. Unclear if patient was engaged in treatment for OUD, including MOUD. T/w went to see patient in room 371. He had just returned from having I&D in OR, and was sleeping/sedated and unable to participate in interview. Briefly opened eyes to his name, then fell back to sleep. He did not appear diaphoretic, or restless while sleeping, and HR WNL. Medical Evaluation Reviewed: Yes Review of Systems Review of Systems Yes Unobtainable due to mental status Diagnostics Vital Signs (24Hr): Vital Signs - 24 hr 05/08/25 07:09 05/08/25 07:14 05/08/25 08:52 Temperature 100.0 F 100.0 F 98.8 F Pulse Rate 100 100 80 Respiratory Rate 20 20 20 Blood Pressure 134/70 134/70 123/75 Pulse Oximetry 95 95 98 Oxygen Delivery Method Room Air Room Air Room Air Oxygen Flow Rate 05/08/25 10:09 05/08/25 12:30 05/08/25 12:34 Temperature 98.8 F 98.7 F 99.0 F Pulse Rate 72 87 80 Respiratory Rate 16 16 18 Blood Pressure 119/79 138/86 141/96 H Pulse Oximetry 98 98 99 Oxygen Delivery Method Room Air Room Air Room Air Oxygen Flow Rate 05/08/25 13:40 05/08/25 15:19 05/08/25 15:24 Temperature 98.2 F 101 F H Pulse Rate 83 88 81 Respiratory Rate 22 H 12 14 Blood Pressure 138/97 H 129/82 136/86 Pulse Oximetry 100 99 100 Oxygen Delivery Method Room Air Simple Mask Simple Mask Oxygen Flow Rate 6 6 05/08/25 15:29 05/08/25 15:34 05/08/25 15:45 Temperature 100.6 F H Pulse Rate 80 88 90 Respiratory Rate 16 16 16 Blood Pressure 138/91 H 140/92 H 138/88 Pulse Oximetry 100 99 99 Oxygen Delivery Method Room Air Room Air Room Air Oxygen Flow Rate 05/08/25 16:01 Temperature 100.1 F Pulse Rate 83 Respiratory Rate 16 Blood Pressure 146/95 H Pulse Oximetry 95 Oxygen Delivery Method Room Air Oxygen Flow Rate BMI result Body Mass Index 25.1 Labs 05/08/25 07:26 05/08/25 07:26 Labs: Laboratory Results - last 48 hr 05/08/25 07:26 WBC 15.6 H RBC 3.77 L Hgb 8.3 L Hct 26.3 L MCV 69.8 L MCH 22.0 L MCHC 31.6 RDW 15.2 Plt Count 171 MPV 8.4 L Immature Gran % (Auto) 2.7 H Neut % (Auto) 79.7 H Lymph % (Auto) 6.7 L [place] % (Auto) 10.7 Eos % (Auto) 0.1 Baso % (Auto) 0.1 Lymph # (Auto) 1.1 L [place] # (Auto) 1.7 H Eos # (Auto) 0.0 Baso # (Auto) 0.0 Abs Immat Gran (auto) 0.42 H Absolute Neuts (auto) 12.4 H Absolute Nucleated RBC 0.000 Nucleated RBC % (auto) 0.0 Smear Tech's Comments VERIFIED ESR 74 H Sodium 131 L Potassium 3.6 Chloride 102 Carbon Dioxide 24 Anion Gap 9 L BUN 7 L Creatinine 0.65 Estim Creat Clear Calc 155.9 Estimated GFR > 60 Random Glucose 131 H Lactic Acid 1.4 Calcium 8.8 Iron 8 L TIBC 255 % Saturation 3 L Unsat Iron Binding 247 Ferritin 182 Total Bilirubin 0.5 AST 43 H ALT 32 Alkaline Phosphatase 93 Total Creatine Kinase 532 H C-Reactive Protein 24.83 H Total Protein 6.3 L Albumin 3.3 L Imaging Radiology Impressions: ITS Impressions Forearm X-Ray 05/08/25 08:15 IMPRESSION: Diffuse soft tissue swelling of the distal arm and proximal forearm. No osseous abnormality is identified. Electronically signed by: Anthony Ortez MD 05/08/2025 08:24 AM [facility] Humerus X-Ray 05/08/25 08:18 IMPRESSION: Diffuse soft tissue swelling of the distal arm and proximal forearm. No osseous abnormality is identified. Electronically signed by: Anthony Ortez MD 05/08/2025 08:24 AM EST RP Venous Duplex 05/08/25 08:31 IMPRESSION: No definite evidence of acute DVT in the left upper extremity. Electronically signed by: Anthony Ortez MD 05/08/2025 09:00 AM EST RP Forearm CT 05/08/25 11:03 IMPRESSION: Large multiloculated abscess(es) in the flexor compartment muscles of the left forearm. Diffuse subcutaneous edema. Electronically signed by: Kely Pink MD 05/08/2025 01:06 PM EST RP Hand CT 05/08/25 11:03 IMPRESSION: Diffuse subcutaneous edema. Fluid seen in the carpal tunnel surrounding the flexor tendon sheath. No abscess. Electronically signed by: Kely Pink MD 05/08/2025 01:05 PM EST RP Mental Status Exam Mental Status Exam Level of Consciousness: Sedated Medications Medications Current Medications Acetaminophen (Acetaminophen 325 Mg Tablet) 650 mg PO Q6H PRN PRN Reason: Pain, Mild 1-3,fever,headache Calcium Carbonate (Calcium Carbonate 750 Mg Tab.Chew) 750 mg PO Q4H PRN PRN Reason: Heartburn Enoxaparin Sodium (Enoxaparin Sodium 40 Mg/0.4 Ml Syringe) 40 mg SUBCUT Q24H [facility] Last Admin: 05/08/25 11:29 Dose: 40 mg Hydromorphone HCl (Hydromorphone Hcl 1 Mg/Ml Syringe) 0.5 mg IVPUSH Q3H PRN; Protocol PRN Reason: Pain, Severe (Pain Scale 7-10) Lactated Ringer's (Lr) 1,000 mls @ 125 mls/hr IVCONT .Q8H [facility] Last Admin: 05/08/25 10:06 Dose: 125 mls/hr Piperacillin Sod/Tazobactam (Sod 3.375 gm/ Sodium Chloride) 50 mls @ 100 mls/hr IV Q6H [facility] Vancomycin HCl 1,250 mg/ (Sodium Chloride) 250 mls @ 166.667 mls/hr IV Q12H [facility] Magnesium Hydroxide (Milk Of Magnesia 30 Ml Oral.Susp) 30 ml PO DAILY PRN PRN Reason: Constipation Melatonin (Melatonin 3 Mg Tablet) 6 mg PO BEDTIME PRN PRN Reason: Insomnia Ondansetron HCl (Ondansetron Hcl 4 Mg/2 Ml Vial) 4 mg IVPUSH Q8H PRN PRN Reason: Nausea and Vomiting Oxycodone HCl (Oxycodone Hcl Immed Release 5 Mg Tablet) 5 mg PO Q6H PRN PRN Reason: Pain, Moderate(Pain Scale 4-6) Pharmacy Consult (Consult Rx Vancomycin Dosing) 1 each MISCELLANE DAILY PRN PRN Reason: Consult order Sodium Chloride (0.9 % Sodium Chloride Flush 3 Ml Syringe) 3 ml IVFLUSH QSHIFT [facility] Sodium Chloride (0.9 % Sodium Chloride Flush 3 Ml Syringe) 3 ml IVFLUSH QSHIFT [facility] Allergies Allergies Allergy/AdvReac Type Severity Reaction Status Date / Time No Known Allergies Allergy Verified 05/08/25 13:53 Assessment & Plan Assessment & Plan (1) Opioid use disorder: Status: Acute Code(s): F11.90 - Opioid use, unspecified, uncomplicated Assessment and Plan: PRN pain medications in place will follow up in AM, and obtain appropriate history Total time managing care of this patient today ___20_ minutes. PMFSH Past Medical History Medical History IVDU (intravenous drug user) Social History Social History Household Members: Friend(s) Housing: Homeless Do you presently have visiting nurse or other home services: No Patient Tobacco Use Status: Never used Tobacco e-Cigarette/Vaping Use: Never Used Substance Use Type: Crack/Cocaine and Heroin
[2025-05-08] MEDS: 0.9 % Sodium Chloride Flush 3 ML SYRINGE IVFLUSH (16:42)
--- NOTE | 2025-05-08 18:11 | PHA.MEDREC ---
Pharmacy Consult ? Medication Reconciliation Pharmacy has completed the medication reconciliation.
[2025-05-09] VITALS (8 sets, daily range): BP systolic 104–168; BP diastolic 70–76; PULSE 62–75; RESP 15–18; TEMP 36.5–38.2; O2SAT 97–99
--- NOTE | 2025-05-09 00:15 | P.EN_ITS ---
Event Note Date of Service: 05/09/25 Event Note: Nursing notified this property underwriter that patient has been having intermittent fevers highest 102 status post I&D of left arm abscess secondary to IV drug abuse. Patient is on vanco and Zosyn. Ordering 1 dose of Toradol 15 mg IV x1, IV fluids and ice packs PRN Time Spent With Patient Time: Total time managing care of this patient today ____ minutes.
[2025-05-09] MEDS: Lactated Ringers 500 ML 999 ML IV (00:56)
[2025-05-09] MEDS: Lactated Ringers 1,000 ML 125 ML IVCONT ×3 (01:04→21:59)
[2025-05-09] MEDS: oxyCODONE HCl Immed Release 5 MG TABLET PO ×4 (01:59→21:58)
[2025-05-09 06:25] LABS: MANUAL DIFF FLAG NO
[2025-05-09 06:29] LABS: Hematocrit 28.2 % (42.0-52.0); Hemoglobin 8.9 g/dl (14.0-18.0); Imm Gran Abs Auto 0.15 X10*3/uL (0.00-0.03); Imm Gran Pct Auto 0.9 % (0.0-0.4); Lymphocytes Absolute Auto 1.1 X10*3/uL (1.2-4.9); Mean Corpuscular HGB Conc 31.6 g/dl (31.0-36.0); Mean Corpuscular Hemoglobin 22.1 pg (27.0-33.0); Mean Corpuscular Volume 70.1 fL (80.0-98.0); NRBC Abs Auto 0.000 X10*3/uL (0.0-0.012); NRBC Pct Auto 0.0 /100WBC (0.0-0.2); Platelet Count 229 X10*3/uL (160-400); Red Blood Count 4.02 X10*6/uL (4.60-5.80); White Blood Count 16.5 X10*3/uL (4.8-10.8)
[2025-05-09 06:50] LABS: Anion Gap 10 (12-20); Blood Urea Nitrogen 7 mg/dL (9-16); Calcium 8.6 mg/dL (8.4-10.2); Carbon Dioxide 25 mmol/L (22-29); Chloride 107 mmol/L (96-108); Creatinine Clr Calc Pharmacy 158.4; Estimated Glomerular Filt Rate > 60; Potassium 3.9 mmol/L (3.3-5.1); Sodium 138 mmol/L (135-145)
--- NOTE | 2025-05-09 09:12 | HO.POSTANES ---
Post Anesthesia Evaluation Post Anesthesia Evaluation Date of Service: 05/09/25 Vital Signs: Vital Signs Temp Pulse Resp BP Pulse Ox O2 Del Method 05/09/25 06:47 100.2 F 72 16 143/73 H 98 Room Air 05/09/25 03:21 98.3 F 70 17 104/70 97 Room Air 05/09/25 01:28 98.2 F 05/09/25 01:08 98.2 F 05/08/25 23:47 100.8 F H 87 17 124/81 97 Room Air Anesthesia: General Mental Status: Awake Pain Control: Satisfactory Nausea/Vomiting: None Hydration: Adequate Anesthesia-Related Issues: No Anes. Related Issues
--- NOTE | 2025-05-09 10:04 | HO.ADDICTPRO ---
Subjective Subjective Date of Service: 05/09/25 Reason For Visit: cellulitis Interim History: Patient seen in follow up for OUD Patient crying, reporting pain in his arm. Left upper arm visibly swollen and painful to the touch Current pain medications Dilaudid 0.5mg Q3H PRN and oxycodone 5mg Q6H PRN Due to underlying OUD, patient will likely require higher doses of opiates to managed acute pain Unclear if withdrawal sx present as patient unable to participate secondary to pain and discomfort Review of Systems Acute medical concerns: Yes Diagnostics Vital Signs (24Hr): Vital Signs - 24 hr 05/08/25 10:09 05/08/25 12:30 05/08/25 12:34 Temperature 98.8 F 98.7 F 99.0 F Pulse Rate 72 87 80 Respiratory Rate 16 16 18 Blood Pressure 119/79 138/86 141/96 H Pulse Oximetry 98 98 99 Oxygen Delivery Method Room Air Room Air Room Air Oxygen Flow Rate 05/08/25 13:40 05/08/25 15:19 05/08/25 15:24 Temperature 98.2 F 101 F H Pulse Rate 83 88 81 Respiratory Rate 22 H 12 14 Blood Pressure 138/97 H 129/82 136/86 Pulse Oximetry 100 99 100 Oxygen Delivery Method Room Air Simple Mask Simple Mask Oxygen Flow Rate 6 6 05/08/25 15:29 05/08/25 15:34 05/08/25 15:45 Temperature 100.6 F H Pulse Rate 80 88 90 Respiratory Rate 16 16 16 Blood Pressure 138/91 H 140/92 H 138/88 Pulse Oximetry 100 99 99 Oxygen Delivery Method Room Air Room Air Room Air Oxygen Flow Rate 05/08/25 16:01 05/08/25 19:34 05/08/25 23:47 Temperature 100.1 F 100.7 F H 100.8 F H Pulse Rate 83 90 87 Respiratory Rate 16 17 17 Blood Pressure 146/95 H 141/81 H 124/81 Pulse Oximetry 95 100 97 Oxygen Delivery Method Room Air Room Air Room Air Oxygen Flow Rate 05/09/25 01:08 05/09/25 01:28 05/09/25 03:21 Temperature 98.2 F 98.2 F 98.3 F Pulse Rate 70 Respiratory Rate 17 Blood Pressure 104/70 Pulse Oximetry 97 Oxygen Delivery Method Room Air Oxygen Flow Rate 05/09/25 06:47 Temperature 100.2 F Pulse Rate 72 Respiratory Rate 16 Blood Pressure 143/73 H Pulse Oximetry 98 Oxygen Delivery Method Room Air Oxygen Flow Rate BMI result Body Mass Index 25.1 Labs 05/09/25 06:06 05/09/25 06:06 Labs: Laboratory Results - last 48 hr 05/08/25 05/09/25 07:26 06:06 WBC 15.6 H 16.5 H RBC 3.77 L 4.02 L Hgb 8.3 L 8.9 L Hct 26.3 L 28.2 L MCV 69.8 L 70.1 L MCH 22.0 L 22.1 L MCHC 31.6 31.6 RDW 15.2 15.3 Plt Count 171 229 D MPV 8.4 L 8.9 L Immature Gran % (Auto) 2.7 H 0.9 H Neut % (Auto) 79.7 H 83.6 H Lymph % (Auto) 6.7 L 6.4 L [place] % (Auto) 10.7 8.9 Eos % (Auto) 0.1 0.0 Baso % (Auto) 0.1 0.2 Lymph # (Auto) 1.1 L 1.1 L [place] # (Auto) 1.7 H 1.5 H Eos # (Auto) 0.0 0.0 Baso # (Auto) 0.0 0.0 Abs Immat Gran (auto) 0.42 H 0.15 H Absolute Neuts (auto) 12.4 H 13.8 H Absolute Nucleated RBC 0.000 0.000 Nucleated RBC % (auto) 0.0 0.0 Smear Tech's Comments VERIFIED ESR 74 H Sodium 131 L 138 Potassium 3.6 3.9 Chloride 102 107 Carbon Dioxide 24 25 Anion Gap 9 L 10 L BUN 7 L 7 L Creatinine 0.65 0.64 Estim Creat Clear Calc 155.9 158.4 Estimated GFR > 60 > 60 Random Glucose 131 H 144 H Lactic Acid 1.4 Calcium 8.8 8.6 Iron 8 L TIBC 255 % Saturation 3 L Unsat Iron Binding 247 Ferritin 182 Total Bilirubin 0.5 AST 43 H ALT 32 Alkaline Phosphatase 93 Total Creatine Kinase 532 H 684 H C-Reactive Protein 24.83 H Total Protein 6.3 L Albumin 3.3 L Imaging Radiology Impressions: ITS Impressions Forearm X-Ray 05/08/25 08:15 IMPRESSION: Diffuse soft tissue swelling of the distal arm and proximal forearm. No osseous abnormality is identified. Electronically signed by: Anthony Ortez MD 05/08/2025 08:24 AM EST RP Humerus X-Ray 05/08/25 08:18 IMPRESSION: Diffuse soft tissue swelling of the distal arm and proximal forearm. No osseous abnormality is identified. Electronically signed by: Anthony Ortez MD 05/08/2025 08:24 AM EST RP Venous Duplex 05/08/25 08:31 IMPRESSION: No definite evidence of acute DVT in the left upper extremity. Electronically signed by: Anthony Ortez MD 05/08/2025 09:00 AM EST RP Forearm CT 05/08/25 11:03 IMPRESSION: Large multiloculated abscess(es) in the flexor compartment muscles of the left forearm. Diffuse subcutaneous edema. Electronically signed by: Kely Pink MD 05/08/2025 01:06 PM EST RP Hand CT 05/08/25 11:03 IMPRESSION: Diffuse subcutaneous edema. Fluid seen in the carpal tunnel surrounding the flexor tendon sheath. No abscess. Electronically signed by: Kely Pink MD 05/08/2025 01:05 PM EST RP Medications Medications Current Medications Acetaminophen (Acetaminophen 325 Mg Tablet) 650 mg PO Q6H PRN PRN Reason: Pain, Mild 1-3,fever,headache Last Admin: 05/08/25 19:57 Dose: 650 mg Calcium Carbonate (Calcium Carbonate 750 Mg Tab.Chew) 750 mg PO Q4H PRN PRN Reason: Heartburn Enoxaparin Sodium (Enoxaparin Sodium 40 Mg/0.4 Ml Syringe) 40 mg SUBCUT Q24H [facility] Last Admin: 05/08/25 11:29 Dose: 40 mg Hydromorphone HCl (Hydromorphone Hcl 1 Mg/Ml Syringe) 0.5 mg IVPUSH Q3H PRN; Protocol PRN Reason: Pain, Severe (Pain Scale 7-10) Last Admin: 05/09/25 06:15 Dose: 0.5 mg Piperacillin Sod/Tazobactam (Sod 3.375 gm/ Sodium Chloride) 50 mls @ 100 mls/hr IV Q6H [facility] Last Infusion: 05/09/25 05:42 Dose: Infused Vancomycin HCl 1,250 mg/ (Sodium Chloride) 250 mls @ 166.667 mls/hr IV Q12H [facility] Last Infusion: 05/09/25 09:19 Dose: Infused Lactated Ringer's (Lr) 1,000 mls @ 125 mls/hr IVCONT .Q8H [facility] Last Admin: 05/09/25 01:04 Dose: 125 mls/hr Magnesium Hydroxide (Milk Of Magnesia 30 Ml Oral.Susp) 30 ml PO DAILY PRN PRN Reason: Constipation Melatonin (Melatonin 3 Mg Tablet) 6 mg PO BEDTIME PRN PRN Reason: Insomnia Methadone HCl (Methadone Hcl 20 Mg/2 Ml Oral.Conc) 10 mg PO ONCE ONE Stop: 05/09/25 10:04 Ondansetron HCl (Ondansetron Hcl 4 Mg/2 Ml Vial) 4 mg IVPUSH Q8H PRN PRN Reason: Nausea and Vomiting Oxycodone HCl (Oxycodone Hcl Immed Release 5 Mg Tablet) 5 mg PO Q6H PRN PRN Reason: Pain, Moderate(Pain Scale 4-6) Last Admin: 05/09/25 06:56 Dose: 5 mg Pharmacy Consult (Consult Rx Vancomycin Dosing) 1 each MISCELLANE DAILY PRN PRN Reason: Consult order Sodium Chloride (0.9 % Sodium Chloride Flush 3 Ml Syringe) 3 ml IVFLUSH QSHIFT [facility] Last Admin: 05/09/25 07:39 Dose: Not Given Allergies Allergies Allergy/AdvReac Type Severity Reaction Status Date / Time No Known Allergies Allergy Verified 05/08/25 13:53 Assessment & Plan Assessment & Plan (1) Opioid use disorder: Status: Acute Code(s): F11.90 - Opioid use, unspecified, uncomplicated Assessment and Plan: patient in significant pain -discussed with attending provider, requesting increase in pain medications methadone 10mg x1--to address pain, and any possibility of mild withdrawal will continue to follow Total time managing care of this patient today __15__ minutes.
[2025-05-09] MEDS: methADONE HCl 20 MG/2 ML ORAL.CONC 10 MG PO ×2 (10:46→21:54)
--- NOTE | 2025-05-09 11:49 | HO.PM.IMPN ---
Subjective Subjective Date of Service: 05/09/25 Interval History: Has lots of pain arm looks swollen Physical Exam Vital Signs: Vital Signs: Last Vital Signs Temp 100.0 F 05/09/25 10:00 Pulse 73 05/09/25 10:00 Resp 15 05/09/25 10:00 BP 147/74 H 05/09/25 10:00 Pulse Ox 99 05/09/25 10:00 O2 Del Method Room Air 05/09/25 10:00 O2 Flow Rate 6 05/08/25 15:24 BMI result Body Mass Index 25.1 Const: Other: General: AO X 3, no acute distress Resp: CTA bilateral CVS: S1,S2,RRR GI: +BS, NT, no distention Skin: left arm dressing in place, no discoloration of arm or hand, warm Neuro: motor grossly intact Psych: appropriate affect Objective Data Active Medications Acetaminophen (Acetaminophen 325 Mg Tablet) 650 mg PO Q6H PRN PRN Reason: Pain, Mild 1-3,fever,headache Last Admin: 05/08/25 19:57 Dose: 650 mg Documented By: COTY Calcium Carbonate (Calcium Carbonate 750 Mg Tab.Chew) 750 mg PO Q4H PRN PRN Reason: Heartburn Enoxaparin Sodium (Enoxaparin Sodium 40 Mg/0.4 Ml Syringe) 40 mg SUBCUT Q24H [facility] Last Admin: 05/09/25 10:39 Dose: 40 mg Documented By: SELIN Hydromorphone HCl (Hydromorphone Hcl 1 Mg/Ml Syringe) 1 mg IVPUSH Q3H PRN; Protocol PRN Reason: Pain, Severe (Pain Scale 7-10) Piperacillin Sod/Tazobactam (Sod 3.375 gm/ Sodium Chloride) 50 mls @ 100 mls/hr IV Q6H [facility] Last Infusion: 05/09/25 11:20 Dose: Infused Documented By: SELIN Vancomycin HCl 1,250 mg/ (Sodium Chloride) 250 mls @ 166.667 mls/hr IV Q12H [facility] Last Infusion: 05/09/25 09:19 Dose: Infused Documented By: SELIN Lactated Ringer's (Lr) 1,000 mls @ 125 mls/hr IVCONT .Q8H [facility] Last Admin: 05/09/25 11:19 Dose: Not Given Documented By: SELIN Non-Admin Reason: IV Running Magnesium Hydroxide (Milk Of Magnesia 30 Ml Oral.Susp) 30 ml PO DAILY PRN PRN Reason: Constipation Melatonin (Melatonin 3 Mg Tablet) 6 mg PO BEDTIME PRN PRN Reason: Insomnia Ondansetron HCl (Ondansetron Hcl 4 Mg/2 Ml Vial) 4 mg IVPUSH Q8H PRN PRN Reason: Nausea and Vomiting Oxycodone HCl (Oxycodone Hcl Immed Release 5 Mg Tablet) 5 mg PO Q6H PRN PRN Reason: Pain, Moderate(Pain Scale 4-6) Last Admin: 05/09/25 06:56 Dose: 5 mg Documented By: MILTON Oxycodone HCl (Oxycodone Hcl Immed Release 5 Mg Tablet) 5 mg PO Q4H PRN PRN Reason: Pain, Moderate(Pain Scale 4-6) Pharmacy Consult (Consult Rx Vancomycin Dosing) 1 each MISCELLANE DAILY PRN PRN Reason: Consult order Sodium Chloride (0.9 % Sodium Chloride Flush 3 Ml Syringe) [facility] Last Admin: 05/09/25 07:39 Dose: Not Given Documented By: SELIN Non-Admin Reason: IV Running Labs 05/09/25 06:06 05/09/25 06:06 Labs: Laboratory Results - last 24 hr 05/09/25 06:06 MCV 70.1 L MCH 22.1 L MCHC 31.6 RDW 15.3 Plt Count 229 D MPV 8.9 L Immature Gran % (Auto) 0.9 H Neut % (Auto) 83.6 H Lymph % (Auto) 6.4 L [place] % (Auto) 8.9 Eos % (Auto) 0.0 Baso % (Auto) 0.2 Lymph # (Auto) 1.1 L [place] # (Auto) 1.5 H Eos # (Auto) 0.0 Baso # (Auto) 0.0 Abs Immat Gran (auto) 0.15 H Absolute Neuts (auto) 13.8 H Absolute Nucleated RBC 0.000 Nucleated RBC % (auto) 0.0 Anion Gap 10 L Estim Creat Clear Calc 158.4 Estimated GFR > 60 Random Glucose 144 H Calcium 8.6 Total Creatine Kinase 684 H Microbiology Microbiology Results: Microbiology 05/08/25 07:38 Blood Culture - Preliminary Blood - Venous No growth after 24 hours. 05/08/25 14:33 Gram Stain - Final Forearm Left Routine Culture - Preliminary Culture in progress. 05/08/25 07:26 Blood Culture - Preliminary Blood - Venous No growth after 24 hours. Assessment and Plan (1) Cellulitis of arm, left: Status: Acute (2) Abscess of left forearm: Status: Acute (3) Opioid use disorder: Status: Acute Plan This is a 39 year old male with history of IVDU who presents with several days of left arm and hard swelling, redness and pain Sepsis due to Left arm/hand cellulitis due to underlying IVDU with recent injection of heroin/cocaine into affected extremity area of cellulitis involves entire hand and extends to the upper arm covering more then 50 % of the LUE no evidence of compartment syndrome at this time s/p I and D of Left volar forearm 05/08 continue IV vanco and zosyn started in the ED ortho fllowing pain control with dilaudid and oxycodone Mild rhabdomyolysis cpk 532 renal function wnl IVF, repeat in AM Mild Hyponatremia sodium 131, 138 today Microcytic anemia unknown chronicity with no baseline H/H for comparison above transfusion threshold at this time check iron studies follow CBC IVDU addiction medicine consult started on methadone dvt ppx - lovenox code status - full code Patient will likely require 2 midnight stay in the hospital for management of left hard/arm cellulitis requring IV antibiotics and specialist evaluation Quality Stroke Does the patient have a stroke diagnosis?: No VTE Prior VTE?: No VTE Risk Level:: Medical - moderate - high VTE Device Contraindication: N/A - Device Ordered VTE Drug Contraindication: N/A - Med Ordered
--- NOTE | 2025-05-09 12:32 | MHC.CM.PN ---
PT REPORTS HE WAS RECENTLY RELEASED [facility] AND HAS BEEN STAYING WITH FRIENDS HE REPORTS HE HOPES TO RETURN TO LIVING WITH HIS BABYS MOTHER HE DOES NOT HAVE A PCP YET AND DECLINES A HCP DCP TBD: PT WILL UPDATE CM ON WHERE HE PLANS TO GO AT DC HE UNDERSTANDS CM CAN ASSIST WITH SNF PLACEMENT AND RECOVERY COULD REFER TO A PROGRAM TRANSPORT TBD BY DISPO
--- NOTE | 2025-05-09 15:37 | HO.WOUND ---
Wound Consult: Initial 39yr old?male admitted to [facility] on 05/08/25- See progress notes and H&P for detailed history.? Wound consult placed for Left FA Post I&D site.? Patient agreeable to assessment and photo documentation.? Patient seen and assessed by and with Chris Da Silva, Orthopedic Surgical PA. Patient had surgery yesterday 05/08/[address] Mariano for a large purulent abscess. Patient reports nausea and vomited clear fluid onto the floor. He is weepy and moaning in pain. He is alert and able to communicate his needs. He reports his pain is intense and he feels unwell, direct care team report he is feverish see vitals sheet for details. Defer to orthopedic Team. Left Forearm 05/09/25 Etiology: ??S/P I&D on 05/08/25 Measurements: 2cm x 0.6cm not probed for depth Wound Bed: viable wound bed is red moist tissue no purulence noted however creamy milky coloring to sanginous drainage. Foul odor noted Edges: ?incision with sutures in place well approximated inferior open area that had drain removed by Chris at bedside - patient tolerated well. [place]icia wound: ? Significant swelling noted, whole arm erythema noted and intense pain Goals of Treatment: ? Small wick packed into wound bed to keep open - concern for the area closing or scabbing and not allowing for drainage. Palpated by PA and no purulent drainage was able to be expressed nor observed. Recommendations: Provide adequate and supplemental nutrition.? When applicable maintain blood glucose levels per Providers order. Left Forearm - Elevate on pillows above level of heart. Cleanse gently with ns moist gauze, apply skin prep to periwound. Lightly pack Iodoform wick into open incision to keep open for drainage. Cover with dry gauze, ABD pad and wrap. May finish with [place] wrap for light compression. Change daily. Report increased swelling, pain and numbness or tingling to provider. Re-consult wound care Nurse for wound deterioration or wound changes.
--- NOTE | 2025-05-09 15:55 | PM.PNORT ---
Subjective Subjective Date of Service: 05/09/25 Interval history: Postop day 1 status post I and D of left forearm Patient is in very significant pain at this time, not well managed Reports that swelling is essentially the same as it was prior to surgery Patient does report that he did have an episode of vomiting just moments before myself and wound care nurse Grecia Chong enter the room No acute events overnight No other acute complaints or concerns at this time Physical Exam Vital Signs: Vital Signs: Last Vital Signs Temp 100.8 F H 05/09/25 15:21 Pulse 75 05/09/25 15:21 Resp 18 05/09/25 15:21 BP 119/71 05/09/25 15:21 Pulse Ox 97 05/09/25 15:21 O2 Del Method Room Air 05/09/25 15:21 O2 Flow Rate 6 05/08/25 15:24 BMI result Body Mass Index 25.1 Extrem: Other: Patient is alert, oriented, and in no acute distress. Neuro: Diminished sensation of the tips of all digits of the left hand at this time Vascular: Cap refill brisk Pain: Very significant tenderness to palpation of the volar aspect of the left wrist extending into the left forearm Mild tenderness to palpation noted of the dorsal aspect of the left wrist and forearm No pain with axial loading of the left wrist No tenderness to palpation of the digits of the left hand ROM: Patient is able to flex digits of the left hand, is unable to make a closed fist, likely due to swelling Patient is only able to minimally actively extend the digits of the left hand due to pain, even passive extension is extremely painful Skin: Small abrasions noted throughout the left wrist and forearm Proximally 8 cm in length incision is noted over the volar aspect of the right wrist extending towards the forearm, with patent area of incision distally and a proximally 2 cm in length There is some active serosanguineous versus slightly purulent drainage of this area General: Very significant edema and erythema noted of the left wrist and forearm, worst on the volar aspect and distal This edema and erythema does extend all the way up to the proximal arm Psych: Appears grossly normal Affect normal Attitude cooperative Procedures Date of Service Date of Service: 05/09/25 Progress Note: A&P Assessment and plan (1) Abscess of left forearm: Status: Acute (2) Cellulitis of arm, left: Status: Acute Plan 1. Status post irrigation and debridement of the left forearm Date of injury 05/08/2025 Case was discussed with Dr. Mariano, and a collaborative treatment plan was formed: Continue IV antibiotics Continue pain management Drain pulled and dressing changed today, patent area is packed with iodoform gauze to encourage continued drainage Remove and repack tomorrow NPO at midnight pending evaluation tomorrow morning for need for potential further surgery Patient understands this and is amenable to this plan Time Spent With Patient Time: Total time managing care of this patient today ____ minutes. Quality Stroke Does the patient have a stroke diagnosis?: No VTE Prior VTE?: No VTE Risk Level:: Medical - moderate - high VTE Device Contraindication: N/A - Device Ordered VTE Drug Contraindication: N/A - Med Ordered
--- NOTE | 2025-05-09 16:31 | PC.NURSE ---
pt temp 100.8, pt nauseous and vomiting, PRN zofran per MAR, pt unable to tolerate PO medications Dr Raymundo notified. Per no tylenol unless temp greater than 101. No new orders at this time.
--- NOTE | 2025-05-09 17:00 | MHC.RECOVRN ---
TW met with pt in 371-1 after consult placed to Addiction Medicine for recurrence of IVDU.? On approach pt is laying in bed, appears to be resting however upon awakening pt began crying and reports severe pain, tremulous, diaphoretic,? requesting pain medication. When asked about IVDU pt shook head no.? TW contacted the primary RN to request pain medication be administered. Shortly after, primary RN reports pt vomited leading to suspicion for opioid withdrawal.? TW visited pt to reassess. Pt remained in a curled position, rocking, and stated he was using 2 bundles of IV heroin as well as cocaine, last use Monday05/05/25. Pt states prior to that he was receiving [facility]adone in [facility] and was released 2 weeks ago. Pt was unsure of his dose at that time and unable to recall how long he was incarcerated for. He reports he did not follow up with [facility] clinic upon release from [facility].? Discussed with Addictions Provider and 20mg methadone ordered with additional 10mg prn. Dose to be increased to 50mg Monday. Pt is in agreement with plan to restart methadone.? ACS team to continue to follow and available as needed.?
[2025-05-09] MEDS: methADONE HCl 20 MG/2 ML ORAL.CONC PO (17:22)
[2025-05-10 01:43] VITALS: BP 130/60; PULSE 68; RESP 18; TEMP 36.2; O2SAT 99
[2025-05-10] MEDS: Lactated Ringers 1,000 ML 125 ML IVCONT ×2 (04:24→17:35)
[2025-05-10] MEDS: oxyCODONE HCl Immed Release 5 MG TABLET PO ×3 (05:01→20:46)
[2025-05-10 06:00] VITALS: BP 140/60; PULSE 71; RESP 18; TEMP 36; O2SAT 98
[2025-05-10 06:36] LABS: Creatinine Clr Calc Pharmacy 174.8; Estimated Glomerular Filt Rate > 60
[2025-05-10 07:32] LABS: HIV Num 1 12.58 S/CO (0.00-0.99); ~HepC Num1 6.46 S/CO (0.00-0.79); ~Hepatitis C Antibody Reactive (Nonreactive)
[2025-05-10 08:11] VITALS: BP 157/76; PULSE 65; RESP 20; TEMP 36.9; O2SAT 99
[2025-05-10] MEDS: methADONE HCl 20 MG/2 ML ORAL.CONC 50 MG PO (08:46)
[2025-05-10 09:51] LABS: HIV Num 2 0.06 S/CO; HIV Num 3 0.06 S/CO
--- NOTE | 2025-05-10 14:01 | PM.PNORT ---
Subjective Subjective Date of Service: 05/10/25 Interval history: Postop day 2 status post I and D of left forearm c/o pain in the proximal forearm, states the pain along incision area is improving No acute events overnight Physical Exam Vital Signs: Vital Signs: Last Vital Signs Temp 98.4 F 05/10/25 08:11 Pulse 65 05/10/25 08:11 Resp 20 05/10/25 08:11 BP 157/76 H 05/10/25 08:11 Pulse Ox 99 05/10/25 08:11 O2 Del Method Room Air 05/10/25 08:11 O2 Flow Rate 6 05/08/25 15:24 BMI result Body Mass Index 25.1 Extrem: Other: Patient is alert, oriented, and in no acute distress. Neuro: Diminished sensation of the tips of all digits of the left hand at this time Vascular: Cap refill brisk Pain: tenderness to palpation of the volar aspect of the left proximal forearm just distal to the antecubital fossa No evidence of abscess formation at this area Proximal forearm is firm but compartment is soft Improved swelling along the distal radius and incision site Minimal drainge from iodoform drain being pulled No pain with axial loading of the left wrist No tenderness to palpation of the digits of the left hand ROM: Patient is able to flex digits of the left hand, is unable to make a closed fist, likely due to swelling Patient is only able to minimally actively extend the digits of the left hand due to pain, even passive extension is extremely painful Psych: Appears grossly normal Affect normal Attitude cooperative Procedures Date of Service Date of Service: 05/10/25 Progress Note: A&P Assessment and plan (1) Abscess of left forearm: Status: Acute (2) Cellulitis of arm, left: Status: Acute Plan 1. Status post irrigation and debridement of the left forearm Date of injury 05/08/2025 Case was discussed with Dr. Mariano, and a collaborative treatment plan was formed: Continue IV antibiotics Continue pain management Drain pulled and dressing changed today, patent area is packed with iodoform gauze to encourage continued drainage Remove and repack tomorrow NPO at midnight pending evaluation tomorrow morning for need for potential further surgery Patient understands this and is amenable to this plan Time Spent With Patient Time: Total time managing care of this patient today ____ minutes. Quality Stroke Does the patient have a stroke diagnosis?: No VTE Prior VTE?: No VTE Risk Level:: Medical - moderate - high VTE Device Contraindication: N/A - Device Ordered VTE Drug Contraindication: N/A - Med Ordered
--- NOTE | 2025-05-10 15:05 | MHC.RECOVRN ---
Met with pt. in 371-1 to offer education and support and to complete ACS eval. Pt in bed resting. Did awake by voice after calling a few times. Pt reports his methadone dose has been effective and no W/D sx noted. Pt accessing his PRN pain meds appropriately and appears very comfortable. T/W spoke with Mayuri Nicolas NP re: ID consult as not yet in chart. ACS will attempt full eval tomorrow if pt. more alert. ACS available PRN
--- NOTE | 2025-05-10 15:37 | P.PNIM_ITS ---
Subjective Subjective Date of Service: 05/10/25 Interval History: Seen in follow-up for cellulitis and abscess of left forearm/hand Interval history: Patient tearful, reporting 10/10 pain. Denies sweats, chills. Currently NPO asking to eat. Awake recs from ortho. No overnight events. Methadone increased this am. s/p I&D 05/08 Review of Systems Review of Systems: Yes all other systems are reviewed and are negative Physical Exam 2 Exam: Exam: EXAM: Constitutional - Awake and Alert, tearful in some distress Eyes - PERRL Cardiovascular - S1S2, RRR, No edema Respiratory - Normal lung expansion, Normal respiratory effort, No respiratory distress, CTA bilaterally Extremities - no calf tenderness bilaterally. Significant swelling and induration from the fingertips to the proximal forearm and distal to the antecubital fossa. Sensation and movement of fingers in tact Skin - Warm/Dry Neurological - Alert & oriented x3 Psychological - Appropriate affect, tearful Vital Signs: Vital Signs: Last Vital Signs Temp 98.4 F 05/10/25 08:11 Pulse 65 05/10/25 08:11 Resp 20 05/10/25 08:11 BP 157/76 H 05/10/25 08:11 Pulse Ox 99 05/10/25 08:11 O2 Del Method Room Air 05/10/25 08:11 O2 Flow Rate 6 05/08/25 15:24 BMI result Body Mass Index 25.1 Objective Data Active Medications Acetaminophen (Acetaminophen 325 Mg Tablet) 650 mg PO Q6H PRN PRN Reason: Pain, Mild 1-3,fever,headache Last Admin: 05/08/25 19:57 Dose: 650 mg Documented By: COTY Calcium Carbonate (Calcium Carbonate 750 Mg Tab.Chew) 750 mg PO Q4H PRN PRN Reason: Heartburn Enoxaparin Sodium (Enoxaparin Sodium 40 Mg/0.4 Ml Syringe) 40 mg SUBCUT Q24H CHARLIE Last Admin: 05/10/25 08:48 Dose: 40 mg Documented By: MING Hydromorphone HCl (Hydromorphone Hcl 1 Mg/Ml Syringe) 1 mg IVPUSH Q3H PRN; Protocol PRN Reason: Pain, Severe (Pain Scale 7-10) Last Admin: 05/10/25 11:44 Dose: 1 mg Documented By: MING Piperacillin Sod/Tazobactam (Sod 3.375 gm/ Sodium Chloride) 50 mls @ 100 mls/hr IV Q6H [facility] Last Infusion: 05/10/25 09:45 Dose: Infused Documented By: MING Lactated Ringer's (Lr) 1,000 mls @ 125 mls/hr IVCONT .Q8H [facility] Last Infusion: 05/10/25 12:25 Dose: Infused Documented By: MING Vancomycin HCl 1,000 mg/ (Sodium Chloride) 270 mls @ 270 mls/hr IV Q8H [facility] Last Infusion: 05/10/25 13:48 Dose: Infused Documented By: MING Magnesium Hydroxide (Milk Of Magnesia 30 Ml Oral.Susp) 30 ml PO DAILY PRN PRN Reason: Constipation Melatonin (Melatonin 3 Mg Tablet) 6 mg PO BEDTIME PRN PRN Reason: Insomnia Methadone HCl (Methadone Hcl 20 Mg/2 Ml Oral.Conc) 50 mg PO DAILY@0800 [facility] Last Admin: 05/10/25 08:46 Dose: 50 mg Documented By: MING Co-signed By: PAMELA Ondansetron HCl (Ondansetron Hcl 4 Mg/2 Ml Vial) 4 mg IVPUSH Q8H PRN PRN Reason: Nausea and Vomiting Last Admin: 05/09/25 15:50 Dose: 4 mg Documented By: SELIN Oxycodone HCl (Oxycodone Hcl Immed Release 5 Mg Tablet) 5 mg PO Q6H PRN PRN Reason: Pain, Moderate(Pain Scale 4-6) Last Admin: 05/10/25 14:38 Dose: 5 mg Documented By: MING Oxycodone HCl (Oxycodone Hcl Immed Release 5 Mg Tablet) 5 mg PO Q4H PRN PRN Reason: Pain, Moderate(Pain Scale 4-6) Last Admin: 05/10/25 05:01 Dose: 5 mg Documented By: DIANN Pharmacy Consult (Consult Rx Vancomycin Dosing) 1 each MISCELLANE DAILY PRN PRN Reason: Consult order Sodium Chloride (0.9 % Sodium Chloride Flush 3 Ml Syringe) 3 ml IVFLUSH QSHIFT [facility] Last Admin: 05/10/25 08:57 Dose: Not Given Documented By: MING Non-Admin Reason: IV Running Labs 05/09/25 06:06 05/10/25 05:52 Labs: Laboratory Results - last 24 hr 05/09/25 05/10/25 17:15 05:52 Estim Creat Clear Calc 174.8 Estimated GFR > 60 Random Vancomycin 6.6 L Hepatitis C Ab (EIA) Reactive H HIV 1&2 Ab/P24 Ag 4thGn Nonreactive Microbiology Microbiology Results: Microbiology 05/08/25 14:33 Gram Stain - Final Forearm Left Routine Culture - Preliminary Viridans streptococcus group Streptococcus species 05/08/25 07:38 Blood Culture - Preliminary Blood - Venous No growth after 48 hours. 05/08/25 07:26 Blood Culture - Preliminary Blood - Venous No growth after 48 hours. Assessment and Plan (1) Cellulitis of arm, left: Status: Acute (2) Abscess of left forearm: Status: Acute (3) Opioid use disorder: Status: Acute Plan This is a 39 year old male with history of IVDU who presents with several days of left arm and hard swelling, redness and pain, admitted for cellulitis and abscess Sepsis due to Left arm/hand cellulitis due to underlying IVDU with recent relapse/injection of heroin/cocaine into affected extremity area of cellulitis involves entire hand and extends to the upper arm covering more then 50 % of the LUE no evidence of compartment syndrome at this time s/p I and D of Left volar forearm 05/08 continue IV vanco and zosyn started in the ED ortho following. Per ortho, NPO overnight for reevaluation and possible return to the OR on 05/11 pain control with dilaudid and oxycodone. Methadone increased this am Mild rhabdomyolysis CK remains elevated renal function wnl Continue IVF, follow Mild Hyponatremia sodium 131, 138 Microcytic anemia unknown chronicity with no baseline H/H for comparison above transfusion threshold at this time check iron studies follow CBC IVDU addiction medicine consult started on methadone, increased to 50mg this am dvt ppx - lovenox code status - full code Requires ongoing inpatient stay due to cellulitis affecting greater than 50% of the upper extremity requiring IV antibiotics, expert consultation and surgical interventions including I&D Quality Stroke Does the patient have a stroke diagnosis?: No VTE Prior VTE?: No VTE Risk Level:: Medical - moderate - high VTE Device Contraindication: N/A - Device Ordered VTE Drug Contraindication: N/A - Med Ordered
[2025-05-10 15:58] VITALS: BP 165/79; PULSE 69; RESP 18; TEMP 37.8; O2SAT 99
[2025-05-10 17:54] VITALS: TEMP 37.7
--- NOTE | 2025-05-10 18:30 | HE.PHANOTE ---
RE: vanco Level on 05/10 came back at 12.9, changed dose to 1250mg Q8H with predicted trough of 14.7, AUC of 529. Next level 05/11 @1700
[2025-05-10 20:27] VITALS: BP 157/60; PULSE 70; RESP 18; TEMP 37.5; O2SAT 98
[2025-05-11] VITALS (8 sets, daily range): BP systolic 145–168; BP diastolic 60–79; PULSE 56–68; RESP 16–20; TEMP 36.8–37.8; O2SAT 96–979
[2025-05-11] MEDS: oxyCODONE HCl Immed Release 5 MG TABLET PO ×3 (04:08→21:41)
[2025-05-11 06:58] LABS: Hematocrit 28.0 % (42.0-52.0); Hemoglobin 8.9 g/dl (14.0-18.0); Imm Gran Abs Auto 0.14 X10*3/uL (0.00-0.03); Imm Gran Pct Auto 1.0 % (0.0-0.4); Lymphocytes Absolute Auto 1.3 X10*3/uL (1.2-4.9); MANUAL DIFF FLAG SCAN; Mean Corpuscular HGB Conc 31.8 g/dl (31.0-36.0); Mean Corpuscular Hemoglobin 21.9 pg (27.0-33.0); Mean Corpuscular Volume 68.8 fL (80.0-98.0); NRBC Abs Auto 0.000 X10*3/uL (0.0-0.012); NRBC Pct Auto 0.0 /100WBC (0.0-0.2); Platelet Count 329 X10*3/uL (160-400); Red Blood Count 4.07 X10*6/uL (4.60-5.80); SCAN SMEAR FLAG 1; White Blood Count 14.5 X10*3/uL (4.8-10.8)
[2025-05-11 07:10] LABS: Anion Gap 12 (12-20); Calcium 8.3 mg/dL (8.4-10.2); Carbon Dioxide 22 mmol/L (22-29); Chloride 108 mmol/L (96-108); Potassium 3.3 mmol/L (3.3-5.1); Sodium 139 mmol/L (135-145)
[2025-05-11 07:25] LABS: Blood Urea Nitrogen 11 mg/dL (9-16); Creatinine Clr Calc Pharmacy 104.5; Estimated Glomerular Filt Rate > 60
--- NOTE | 2025-05-11 07:56 | HO.PM.IMPN ---
Subjective Subjective Date of Service: 05/11/25 Interval History: Follow up for pt with left forearm cellulitis with abscess from IVDU Continues to experience pain, swelling, and erythema of left forearm Reports similar to yesterday, though perhaps some improvement Denies any other acute medical issue Seen by ortho earlier today, some improvement to left hand; no plan for OR drainage today Will make NPO past midnight for possible drainage in OR on Monday Review of Systems Review of Systems: Yes all other systems are reviewed and are negative Physical Exam Exam: Exam: General: AOx3, no acute distress Resp: CTA bilaterally CVS: S1, S2, RRR GI: +BS, NT, no distention Skin: Warm, dry Neuro: Cranial nerves II-XII grossly intact bilaterally. Motor grossly intact bilaterally Extremities: Left forearm covered in Carlos bandage with a proximal erythema and edema. As pictured below. Psych: Appropriate affect Vital Signs: Vital Signs: Last Vital Signs Temp 99.9 F 05/11/25 05:00 Pulse 56 05/11/25 05:00 Resp 18 05/11/25 05:00 BP 167/77 H 05/11/25 05:00 Pulse Ox 97 05/11/25 05:00 O2 Del Method Room Air 05/11/25 05:00 O2 Flow Rate 6 05/08/25 15:24 BMI result Body Mass Index 25.1 Objective Data Active Medications Acetaminophen (Acetaminophen 325 Mg Tablet) 650 mg PO Q6H PRN PRN Reason: Pain, Mild 1-3,fever,headache Last Admin: 05/10/25 16:48 Dose: 650 mg Documented By: ALISSON Calcium Carbonate (Calcium Carbonate 750 Mg Tab.Chew) 750 mg PO Q4H PRN PRN Reason: Heartburn Enoxaparin Sodium (Enoxaparin Sodium 40 Mg/0.4 Ml Syringe) 40 mg SUBCUT Q24H CHARLIE Last Admin: 05/10/25 08:48 Dose: 40 mg Documented By: MING Hydromorphone HCl (Hydromorphone Hcl 1 Mg/Ml Syringe) 1 mg IVPUSH Q3H PRN; Protocol PRN Reason: Pain, Severe (Pain Scale 7-10) Last Admin: 05/11/25 01:34 Dose: 1 mg Documented By: DIANN Piperacillin Sod/Tazobactam (Sod 3.375 gm/ Sodium Chloride) 50 mls @ 100 mls/hr IV Q6H [facility] Last Infusion: 05/11/25 04:33 Dose: Infused Documented By: DIANN Vancomycin HCl 1,250 mg/ (Sodium Chloride) 250 mls @ 166.667 mls/hr IV Q8H [facility] Last Infusion: 05/11/25 04:12 Dose: Infused Documented By: DIANN Magnesium Hydroxide (Milk Of Magnesia 30 Ml Oral.Susp) 30 ml PO DAILY PRN PRN Reason: Constipation Melatonin (Melatonin 3 Mg Tablet) 6 mg PO BEDTIME PRN PRN Reason: Insomnia Methadone HCl (Methadone Hcl 20 Mg/2 Ml Oral.Conc) 50 mg PO DAILY@0800 [facility] Last Admin: 05/10/25 08:46 Dose: 50 mg Documented By: MING Co-signed By: PAMELA Ondansetron HCl (Ondansetron Hcl 4 Mg/2 Ml Vial) 4 mg IVPUSH Q8H PRN PRN Reason: Nausea and Vomiting Last Admin: 05/10/25 23:13 Dose: 4 mg Documented By: DIANN Oxycodone HCl (Oxycodone Hcl Immed Release 5 Mg Tablet) 5 mg PO Q6H PRN PRN Reason: Pain, Moderate(Pain Scale 4-6) Last Admin: 05/11/25 04:08 Dose: 5 mg Documented By: DIANN Oxycodone HCl (Oxycodone Hcl Immed Release 5 Mg Tablet) 5 mg PO Q4H PRN PRN Reason: Pain, Moderate(Pain Scale 4-6) Last Admin: 05/10/25 20:46 Dose: 5 mg Documented By: DIANN Pharmacy Consult (Consult Rx Vancomycin Dosing) 1 each MISCELLANE DAILY PRN PRN Reason: Consult order Sodium Chloride (0.9 % Sodium Chloride Flush 3 Ml Syringe) 3 ml IVFLUSH QSHIFT [facility] Last Admin: 05/10/25 20:49 Dose: Not Given Documented By: DIANN Non-Admin Reason: IV Running Labs 05/11/25 05:37 05/11/25 05:37 Labs: Laboratory Results - last 24 hr 05/10/25 05/10/25 05/11/25 05:52 17:32 05:37 MCV 68.8 L MCH 21.9 L MCHC 31.8 RDW 15.5 Plt Count 329 D MPV 8.9 L Immature Gran % (Auto) 1.0 H Neut % (Auto) 79.4 H Lymph % (Auto) 8.6 L [place] % (Auto) 10.6 Eos % (Auto) 0.1 Baso % (Auto) 0.3 Lymph # (Auto) 1.3 [place] # (Auto) 1.5 H Eos # (Auto) 0.0 Baso # (Auto) 0.0 Abs Immat Gran (auto) 0.14 H Absolute Neuts (auto) 11.5 H Absolute Nucleated RBC 0.000 Nucleated RBC % (auto) 0.0 Smear Tech's Comments VERIFIED Anion Gap 12 Estim Creat Clear Calc 104.5 Estimated GFR > 60 Random Glucose 108 Calcium 8.3 L Total Creatine Kinase 98 Random Vancomycin 12.9 L Hepatitis C Ab (EIA) Reactive H HIV 1&2 Ab/P24 Ag 4thGn Nonreactive Microbiology Microbiology Results: Microbiology 05/08/25 14:33 Gram Stain - Final Forearm Left Routine Culture - Preliminary Viridans streptococcus group Streptococcus species 05/08/25 07:38 Blood Culture - Preliminary Blood - Venous No growth after 48 hours. 05/08/25 07:26 Blood Culture - Preliminary Blood - Venous No growth after 48 hours. Assessment and Plan (1) Cellulitis of arm, left: Status: Acute (2) Abscess of left forearm: Status: Acute Plan This is a 39 year old male with history of IVDU who presents with several days of left arm and hard swelling, redness and pain, admitted for cellulitis and abscess Sepsis due to Left arm/hand cellulitis due to underlying IVDU with recent relapse/injection of heroin/cocaine into affected extremity area of cellulitis involves entire hand and extends to the upper arm covering more then 50 % of the LUE no evidence of compartment syndrome at this time s/p I and D of Left volar forearm 05/08 continue IV vanco and zosyn started in the ED ortho following. Per ortho, NPO overnight for reevaluation and possible return to the OR on 05/12 pain control with dilaudid and oxycodone. Methadone increased this am Mild rhabdomyolysis, resolved CPK WNL at 98 after IVF Mild Hyponatremia, resolved sodium 131, normalized after IVF Iron-deficiency anemia unknown chronicity with no baseline H/H for comparison above transfusion threshold at this time iron studies with low iron at 8 and saturation at 3% will start on oral iron supplementation follow CBC IVDU addiction medicine consult restarted on methadone; continue 50mg daily dvt ppx - lovenox code status - full code Requires ongoing inpatient stay due to cellulitis affecting greater than 50% of the upper extremity requiring IV antibiotics, expert consultation and surgical interventions including I&D Quality Stroke Does the patient have a stroke diagnosis?: No VTE Prior VTE?: No VTE Risk Level:: Medical - moderate - high VTE Device Contraindication: N/A - Device Ordered VTE Drug Contraindication: N/A - Med Ordered
--- NOTE | 2025-05-11 08:32 | PM.PNORT ---
Subjective Subjective Date of Service: 05/11/25 Interval history: Postop day 2 status post I and D of left forearm c/o pain in the proximal forearm but not as bad as yesterday, states the pain along incision area is improving No acute events overnight Physical Exam Vital Signs: Vital Signs: Last Vital Signs Temp 100.0 F 05/11/25 08:15 Pulse 59 05/11/25 08:15 Resp 20 05/11/25 08:15 BP 151/78 H 05/11/25 08:15 Pulse Ox 979 H 05/11/25 08:15 O2 Del Method Room Air 05/11/25 08:15 O2 Flow Rate 6 05/08/25 15:24 BMI result Body Mass Index 25.1 Extrem: Other: Patient is alert, oriented, and in no acute distress. Neuro: Diminished sensation of the tips of all digits of the left hand at this time Vascular: Cap refill brisk Pain: tenderness to palpation and edema along the medial epicondylar area---no longer circumferential swelling , redness or tension No evidence of abscess formation at this area compartment is soft Improved swelling along the distal radius and incision site moderate copious drainge from iodoform drain being pulled No pain with axial loading of the left wrist No tenderness to palpation of the digits of the left hand ROM: Patient is able to flex digits of the left hand, is unable to make a closed fist, likely due to swelling Patient is only able to minimally actively extend the digits of the left hand due to pain, even passive extension is extremely painful Psych: Appears grossly normal Affect normal Attitude cooperative Procedures Date of Service Date of Service: 05/11/25 Progress Note: A&P Assessment and plan (1) Abscess of left forearm: Status: Acute (2) Cellulitis of arm, left: Status: Acute Plan 1. Status post irrigation and debridement of the left forearm Date of injury 05/08/2025 Case was discussed with Dr. Mariano, and a collaborative treatment plan was formed: Continue IV antibiotics Continue pain management Drain pulled and dressing changed today, patent area is packed with iodoform gauze to encourage continued drainage NPO at midnight for repeat surgery tomorrow Patient understands this and is amenable to this plan Time Spent With Patient Time: Total time managing care of this patient today ____ minutes. Quality Stroke Does the patient have a stroke diagnosis?: No VTE Prior VTE?: No VTE Risk Level:: Medical - moderate - high VTE Device Contraindication: N/A - Device Ordered VTE Drug Contraindication: N/A - Med Ordered
[2025-05-11] MEDS: 0.9 % Sodium Chloride Flush 3 ML SYRINGE IVFLUSH ×3 (09:20→19:28)
[2025-05-11] MEDS: methADONE HCl 20 MG/2 ML ORAL.CONC 50 MG PO (09:24)
--- NOTE | 2025-05-11 13:55 | HE.PHANOTE ---
RE: VANCO DOSING Renal worsened (from sCr = 0.58 to 0.97) with dosing 1250 mg q8h. Held one dose, trough came back as 13.3 mg/L. Continue with dose 1250 mg q12h, next trough is scheduled for 05/12/25 @1300.
[2025-05-11] MEDS: Ferrous Sulfate 324 MG TABLET.DR PO (16:03)
--- NOTE | 2025-05-11 16:50 | MHC.RECOVRN ---
T/W attempted to meet with pt. in 371-1 x 2 for ACS eval. Pt resting and in fair amount of discomfort. Reminded pt about his pain meds and asked nurse for dose if due. Pt scheduled for possible additional drain of wound on . Pt reports his W/D sx are managed on current methadone dosing and no opiate W/D noted. ACS to F/U and complete assessment once pt. more medically stable and able to participate.
[2025-05-12] VITALS (11 sets, daily range): BP systolic 129–184; BP diastolic 63–88; PULSE 54–70; RESP 12–20; TEMP 36.1–37.4; O2SAT 96–100
[2025-05-12] MEDS: oxyCODONE HCl Immed Release 5 MG TABLET PO (03:33)
[2025-05-12 07:38] LABS: Creatinine Clr Calc Pharmacy 97.4; Estimated Glomerular Filt Rate > 60
[2025-05-12] MEDS: Ferrous Sulfate 324 MG TABLET.DR PO (08:51)
[2025-05-12] MEDS: methADONE HCl 20 MG/2 ML ORAL.CONC 50 MG PO (08:51)
[2025-05-12] MEDS: 0.9 % Sodium Chloride Flush 3 ML SYRINGE IVFLUSH (08:55)
--- NOTE | 2025-05-12 09:25 | HO.PM.IMPN ---
Subjective Subjective Date of Service: 05/12/25 Interval History: Follow up for left forearm cellulitis with abscess from IVDU Continues to experience pain, swelling, and erythema of left forearm Plan for OR today Review of Systems Review of Systems: Yes all other systems are reviewed and are negative Physical Exam Exam: Exam: Appearing in no acute distress lung sounds are clear to auscultation heart regular rate rhythm, clear S1, S2 positive bowel sounds, abdomen is soft, nontender neuro patient is alert x3, no focal deficits Left arm with erythema and edema Vital Signs: Vital Signs: Last Vital Signs Temp 97.9 F 05/12/25 08:21 Pulse 58 05/12/25 08:21 Resp 20 05/12/25 08:21 BP 161/78 H 05/12/25 08:21 Pulse Ox 97 05/12/25 08:21 O2 Del Method Room Air 05/12/25 08:21 O2 Flow Rate 6 05/08/25 15:24 BMI result Body Mass Index 25.1 Objective Data Active Medications Acetaminophen (Acetaminophen 325 Mg Tablet) 650 mg PO Q6H PRN PRN Reason: Pain, Mild 1-3,fever,headache Last Admin: 05/10/25 16:48 Dose: 650 mg Documented By: ALISSON Calcium Carbonate (Calcium Carbonate 750 Mg Tab.Chew) 750 mg PO Q4H PRN PRN Reason: Heartburn Enoxaparin Sodium (Enoxaparin Sodium 40 Mg/0.4 Ml Syringe) 40 mg SUBCUT Q24H [facility] Last Admin: 05/11/25 09:23 Dose: 40 mg Documented By: CAROL Ferrous Sulfate (Ferrous Sulfate 324 Mg Tablet.) 324 mg PO BIDWM [facility] Last Admin: 05/12/25 08:51 Dose: 324 mg Documented By: PIERRE Hydromorphone HCl (Hydromorphone Hcl 1 Mg/Ml Syringe) 1 mg IVPUSH Q3H PRN; Protocol PRN Reason: Pain, Severe (Pain Scale 7-10) Last Admin: 05/12/25 08:51 Dose: 1 mg Documented By: PIERRE Piperacillin Sod/Tazobactam (Sod 3.375 gm/ Sodium Chloride) 50 mls @ 100 mls/hr IV Q6H [facility] Last Admin: 05/12/25 09:04 Dose: 100 mls/hr Documented By: PIERRE Vancomycin HCl 1,250 mg/ (Sodium Chloride) 250 mls @ 166.667 mls/hr IV Q12H [facility] Last Infusion: 05/12/25 04:35 Dose: Infused Documented By: LYDIA Magnesium Hydroxide (Milk Of Magnesia 30 Ml Oral.Susp) 30 ml PO DAILY PRN PRN Reason: Constipation Melatonin (Melatonin 3 Mg Tablet) 6 mg PO BEDTIME PRN PRN Reason: Insomnia Last Admin: 05/11/25 21:42 Dose: 6 mg Documented By: LYDIA Methadone HCl (Methadone Hcl 20 Mg/2 Ml Oral.Conc) 50 mg PO DAILY@0800 [facility] Last Admin: 05/12/25 08:51 Dose: 50 mg Documented By: PIERRE Co-signed By: MILTON Ondansetron HCl (Ondansetron Hcl 4 Mg/2 Ml Vial) 4 mg IVPUSH Q8H PRN PRN Reason: Nausea and Vomiting Last Admin: 05/11/25 09:27 Dose: 4 mg Documented By: CAROL Oxycodone HCl (Oxycodone Hcl Immed Release 5 Mg Tablet) 5 mg PO Q6H PRN PRN Reason: Pain, Moderate(Pain Scale 4-6) Last Admin: 05/11/25 16:11 Dose: 5 mg Documented By: CAROL Oxycodone HCl (Oxycodone Hcl Immed Release 5 Mg Tablet) 5 mg PO Q4H PRN PRN Reason: Pain, Moderate(Pain Scale 4-6) Last Admin: 05/12/25 03:33 Dose: 5 mg Documented By: MILTON Pharmacy Consult (Consult Rx Vancomycin Dosing) 1 each MISCELLANE DAILY PRN PRN Reason: Consult order Sodium Chloride (0.9 % Sodium Chloride Flush 3 Ml Syringe) 3 ml IVFLUSH QSHIFT [facility] Last Admin: 05/12/25 08:55 Dose: 3 ml Documented By: PIERRE Labs 05/11/25 05:37 05/12/25 05:47 Labs: Laboratory Results - last 24 hr 05/11/25 05/12/25 05/12/25 13:19 05:47 07:02 Hold Purple Top SEE NOTE Estim Creat Clear Calc 97.4 Estimated GFR > 60 Random Vancomycin 13.3 L Microbiology Microbiology Results: Microbiology 05/08/25 14:33 Gram Stain - Final Forearm Left Routine Culture - Final Viridans streptococcus group Group F Streptococcus Assessment and Plan (1) Cellulitis of arm, left: Status: Acute (2) Abscess of left forearm: Status: Acute Plan 39 year old male with history of IVDU who presents with several days of left arm and hard swelling, redness and pain, admitted for cellulitis and abscess Sepsis due to Left arm/hand cellulitis due to underlying IVDU with recent relapse/injection of heroin/cocaine into affected extremity area of cellulitis involves entire hand and extends to the upper arm covering more then 50 % of the LUE no evidence of compartment syndrome at this time s/p I and D of Left forearm 05/08 continue IV vanco and zosyn started in the ED ortho following> back to OR today pain control with dilaudid and oxycodone. Methadone increased this am Mild rhabdomyolysis, resolved CPK WNL after IVF Mild Hyponatremia, resolved normalized after IVF Iron-deficiency anemia unknown chronicity with no baseline H/H for comparison above transfusion threshold at this time iron studies with low iron at 8 and saturation at 3% iron supplementation Elevated blood pressure readings likely due to withdawal and pain monitor IVDU addiction medicine consult restarted on methadone; continue 50mg daily dvt ppx - lovenox code status - full code Quality Stroke Does the patient have a stroke diagnosis?: No VTE Prior VTE?: No VTE Risk Level:: Medical - moderate - high VTE Device Contraindication: N/A - Device Ordered VTE Drug Contraindication: N/A - Med Ordered
--- NOTE | 2025-05-12 12:34 | MHC.CM.PN ---
Patient not medically cleared for dc. DP: home, [facility] van schedule for wound care if needed (no PCP for VNA). CM will continue to follow.
--- NOTE | 2025-05-12 13:02 | MHC.RECOVRN ---
Met with pt for a recovery eval (see on work list for more info). Pt reports his methadone dose feels sufficient at this time. Pt agreed for OTP referral to be sent on his behalf @ [facility] clinic in [facility]. Referral packet was faxed for review and pt will be expected there for methadone dosing following d/c from the hospital.
--- NOTE | 2025-05-12 13:52 | W.PM.IDCN ---
History of Present Illness Data of Consult Service Date: 05/12/25 Requesting physician: Altagracia Murphy Primary Care Provider: None Physician HPI Reason for consult: sepsis,temperature 100.8 and pulse 100 He presents with left hand swelling extending up arm after using IV drugs and missing vein two days before presenting. He also has fever and tachycardia. He has blood cultures negative so far and wound culture grows strep viridans and Group F strep. Review of Systems Review of Systems: Yes all other systems are reviewed and are negative PMFSH Past Medical History Medical History IVDU (intravenous drug user) Family History Family history: reviewed and not pertinent Social History Social History Household Members: Friend(s) Housing: Homeless Do you presently have visiting nurse or other home services: No Comment: independent in room Patient Tobacco Use Status: Never used Tobacco e-Cigarette/Vaping Use: Never Used Substance Use Type: Crack/Cocaine and Heroin service: No Meds Allergies Allergy/AdvReac Type Severity Reaction Status Date / Time No Known Allergies Allergy Verified 05/08/25 13:53 Active Medications: Current Medications Acetaminophen (Acetaminophen 325 Mg Tablet) 650 mg PO Q6H PRN PRN Reason: Pain, Mild 1-3,fever,headache Last Admin: 05/10/25 16:48 Dose: 650 mg Calcium Carbonate (Calcium Carbonate 750 Mg Tab.Chew) 750 mg PO Q4H PRN PRN Reason: Heartburn Enoxaparin Sodium (Enoxaparin Sodium 40 Mg/0.4 Ml Syringe) 40 mg SUBCUT Q24H [facility] Last Admin: 05/12/25 09:51 Dose: Not Given Ferrous Sulfate (Ferrous Sulfate 324 Mg Tablet.Dr) 324 mg PO BIDWM [facility] Last Admin: 05/12/25 08:51 Dose: 324 mg Hydromorphone HCl (Hydromorphone Hcl 1 Mg/Ml Syringe) 1 mg IVPUSH Q3H PRN; Protocol PRN Reason: Pain, Severe (Pain Scale 7-10) Last Admin: 05/12/25 13:18 Dose: 1 mg Piperacillin Sod/Tazobactam (Sod 3.375 gm/ Sodium Chloride) 50 mls @ 100 mls/hr IV Q6H [facility] Last Infusion: 05/12/25 09:44 Dose: Infused Vancomycin HCl 1,250 mg/ (Sodium Chloride) 250 mls @ 166.667 mls/hr IV Q12H [facility] Last Infusion: 05/12/25 04:35 Dose: Infused Magnesium Hydroxide (Milk Of Magnesia 30 Ml Oral.Susp) 30 ml PO DAILY PRN PRN Reason: Constipation Melatonin (Melatonin 3 Mg Tablet) 6 mg PO BEDTIME PRN PRN Reason: Insomnia Last Admin: 05/11/25 21:42 Dose: 6 mg Methadone HCl (Methadone Hcl 20 Mg/2 Ml Oral.Conc) 50 mg PO DAILY@0800 [facility] Last Admin: 05/12/25 08:51 Dose: 50 mg Ondansetron HCl (Ondansetron Hcl 4 Mg/2 Ml Vial) 4 mg IVPUSH Q8H PRN PRN Reason: Nausea and Vomiting Last Admin: 05/11/25 09:27 Dose: 4 mg Oxycodone HCl (Oxycodone Hcl Immed Release 5 Mg Tablet) 5 mg PO Q6H PRN PRN Reason: Pain, Moderate(Pain Scale 4-6) Last Admin: 05/11/25 16:11 Dose: 5 mg Oxycodone HCl (Oxycodone Hcl Immed Release 5 Mg Tablet) 5 mg PO Q4H PRN PRN Reason: Pain, Moderate(Pain Scale 4-6) Last Admin: 05/12/25 03:33 Dose: 5 mg Pharmacy Consult (Consult Rx Vancomycin Dosing) 1 each MISCELLANE DAILY PRN PRN Reason: Consult order Sodium Chloride (0.9 % Sodium Chloride Flush 3 Ml Syringe) 3 ml IVFLUSH QSHIFT [facility] Last Admin: 05/12/25 08:55 Dose: 3 ml Home Medications ?Medication ?Instructions ?Recorded ?Confirmed ?Last Taken ?Type No Known Home Meds 05/08/25 05/08/25 Unknown History Physical Exam Vital Signs: Vital Signs: Last Vital Signs Temp 97.0 F 05/12/25 13:12 Pulse 54 05/12/25 13:12 Resp 18 05/12/25 13:12 BP 174/87 H 05/12/25 13:12 Pulse Ox 97 05/12/25 13:12 O2 Del Method Room Air 05/12/25 13:12 O2 Flow Rate 6 05/08/25 15:24 BMI result Body Mass Index 25.1 Const: General: cooperative HEENT: Head: Yes normal to inspection Face and sinus: Yes normal facial exam Mouth: Normal oral and palatal mucosa present Teeth and gingiva: dentition normal Eyes: General: appearance normal, both eyes and all related structures Pupils: Equal, round and reactive pupils present Resp: Effort & Inspection: normal respiratory effort Cardio: Rate: regular rate Rhythm: regular rhythm GI: Palpation (GI): Soft to palpation and nontender : General: Yes no CVA tenderness Back/Spine/Pelvis: Back: no CVA tenderness Skin: General skin exam: no rashes or lesions noted Neuro: General: moves all extremities Cranial nerves: Yes Equal, round and reactive pupils present Extrem: Other: swelling left hand and swelling extending up arm Psych: Appearance: grossly normal Results Labs 05/11/25 05:37 05/12/25 05:47 Labs: BMP 05/12/25 05:47 Creatinine 1.04 Microbiology Microbiology Results: Microbiology 05/08/25 14:33 Forearm Left Gram Stain - Final 05/08/25 14:33 Forearm Left Routine Culture - Final Viridans streptococcus group Group F Streptococcus 05/08/25 07:38 Blood - Venous Blood Culture - Preliminary No growth after 48 hours. 05/08/25 07:26 Blood - Venous Blood Culture - Preliminary No growth after 48 hours. Assessment and Plan (1) Opioid use disorder: Status: Acute (2) Cellulitis of arm, left: Status: Acute (3) Abscess of left forearm: Status: Acute Plan Hand cellulitis and abscess. He has no MRSA He has no gram negatives or anerobes growing He has strep viridans and Group F strep Would switch antibiotics to Ceftriaxone 2 g daily as well as Clindamycin 900 mg IV every 8 hours,Clindamycin probably 2-3 days until swelling decreases as it decreases toxin production and bacterial burden Follow up Hepatitis C as outpatient (negative HIV). Addiction evaluation
--- NOTE | 2025-05-12 13:54 | HE.PHANOTE ---
Re: Brittney Pt's renal function is in significant decline. Trough returned at 15.9, this trough is running 8 points higher than predicted. Dose reduced to 1500mg q24h with predicted AUC 282, and predicted trough of 5.5. Taking into consideration that pt's trough running significantly high and renal decline. Next trough is 05/13 @ 1300.
--- NOTE | 2025-05-12 13:55 | MHC.SHP ---
Pre-Procedural Eval Section A - 24 Hr Update-Section A only Date of Service: 05/12/25 The patient is an INPATIENT: Yes Changes since office visit: No Cold of Flu in the past 2 weeks, No New Medical Problems, No Changes in Medication and No Patient answered all questions The patient has been examined within 24 hours of the surgical procedure. The History & Physical has been completed within 30 days and I have reviewed it.: Yes Section B - Complete if H&P > 30 days Chief Complaint: cellulitis Allergies: Allergies Allergy/AdvReac Type Severity Reaction Status Date / Time No Known Allergies Allergy Verified 05/08/25 13:53 Exam Exam Comment: Patient seen in preop hold. He is alert oriented and in no acute distress. He appears to be clinically in much less pain than he wants 4 days ago. He still has some redness and warmth and tenderness over the volar aspect of the forearm, but overall has significant improvement in the swelling, edema and tenderness compared with 4 days ago. He is willing to actively flex his fingers. He can actively extend at the PIP and to some extent the MCP joints, but was restricted secondary to pain in the volar forearm with even passive extension of the fingers. Cap refill brisk to all digits and sensation intact to the tips of the digits. Plan Diagnosis/Plan: Unchanged I have reviewed the history and physical and performed a pertinent physical examination on my patient. No changes have occurred unless specified. Assessment and plan: 1. Left volar forearm abscess, deep Secondary to IV drug use Status post I and D on 05/08/2025 I educated him about this condition I am recommending a 2nd I and D today. He wishes to proceed with surgery. The risks and benefits of operative treatment were discussed with the patient and the patient wishes to proceed with surgery. These risks include, but are not limited to risk of damage to blood vessels, nerves, tendons, infection, recurrence, incomplete relief of preoperative symptoms, persistent pain, possible need for further surgery and the risks associated with regional blocks and anesthesia. The plan is to take the patient to the operating room today for the following procedures: 1. Left forearm I and D 2. [ ] All of the preoperative paperwork including the consent was filled out today. All the patient's questions were answered. Time Spent With Patient Time: Total time managing care of this patient today ____ minutes.
--- NOTE | 2025-05-12 13:55 | W.PM.OPN ---
Operative Note Operative Note Date of Service: 05/12/25 Narrative: Operative Note Narrative: Preop diagnosis: 1. Left forearm deep volar abscess status post I and D x1 Postop diagnosis: Same Procedure: 2. Left forearm deep volar abscess repeat I and D Surgeon: Makenzie Mariano MD Wire Drawing Die Maker: None Anesthesia: General Anesthesia Findings: I did not appreciate much in the way of purulence coming from her original pocket of purulence that ran along the volar aspect of the radius shaft. There was a 2nd significant pocket of purulence that came from the proximal ulnar aspect of the forearm again passing beneath some of the flexor muscle bellies. The purulence was again a yellow hood color, not particularly odorous, unlike the original pocket. Implants: 1/2 inch drain cut into 2 pieces with the 1st longer piece passing along the volar aspect of the radius shaft, and the 2nd shorter piece passing from the more proximal wound into the proximal ulnar aspect of the forearm Tourniquet time: 0 minutes EBL: 5.0 ml Specimen: None Drains: Hayde drains x2 Complications: None Disposition: Brought to the recovery room in stable condition Plan: Admit back to floor for continued IV antibiotics Check cultures and adjust antibiotic Pull drains and wound check tomorrow afternoon Indications: The patient is a 39 year old man with a deep volar abscess of the left forearm that is already status post I and D on 05/08/2025. Patient with some improvement in cellulitis but persistent purulent drainage . The risks and benefits of operative treatment, including but not limited to risk of damage to blood vessels, nerves, tendons, infection, recurrence, persistent pain or numbness, incomplete resolution of preoperative symptoms, or need for further surgery were discussed with the patient and they wished to proceed with surgery. Procedure: Once consent was obtained patient was brought back to the operating suite and placed in the operating table in a supine position. . Perioperative antibiotics and anesthesia was administered by the anesthesia team. A tourniquet was applied to the proximal aspect of the left upper extremity and the limb was prepped and draped in a standard surgical fashion. The tourniquet was not inflated during the case. Sutures were removed from the distal volar incision site. We carefully dissected through the original incision between the FCR tendon and muscle belly and the underlying radius shaft. Honestly that was not much in the way of purulence found in this area. However, there was another area of purulence identified coming from beneath the flexor muscle bellies and the proximal ulnar aspect of the forearm. I made a 2.5 cm longitudinal incision over the apex of this area of fullness in the proximal ulnar aspect of the forearm. The incision was made through the skin to the subcutaneous tissues. I then carefully dissected through the subcutaneous tissue and through a small area of the volar forearm fascia. There I encountered another significant pocket of creamy yellow hood purulence that connected with the more distal wound as noted above. I used the [place]auer sucker to drain the main area of purulence which was again in the proximal ulnar aspect of the forearm. I then copiously irrigated both the original pocket between the flexor muscle bellies and the volar surface of the radius shaft, and this 2nd pocket in the proximal ulnar aspect of the forearm within the subcutaneous tissues and muscle belly. More than 2000 mL of saline were used to irrigate these areas. We no longer had any creamy purulence seen at the end of our irrigation and debridement. We did debride/excised a small amount of nonviable tissue from about the original wound in the distal volar forearm. A half-inch [place] drain was placed in the volar wound over the distal forearm and along the volar surface of the radius. It was cut to appropriate length and the shorter piece was then placed in the more proximal wound and entering the pocket in the proximal volar ulnar forearm to facilitate drainage. Both wounds were loosely closed with 3-0 Prolene suture. The distal wound was closed enough to cover the otherwise exposed FCR tendon. A sterile dressing was then placed. The patient appears to have tolerated the procedure well and with no complications. All digits were well vascularized conclusion of the case.
[2025-05-12] MEDS: Lactated Ringers 1,000 ML 80 ML IVCONT ×2 (15:13→18:29)
--- NOTE | 2025-05-12 16:17 | HO.ANESPROP2 ---
HPI - Anesthesia Eval Consult details Narrative: Left ingrid abscess PMFSH Active Problems Active Problems: All Active Problems Opioid use disorder (Acute) Abscess of left forearm (Acute) Cellulitis of arm, left (Acute) Past Medical History Medical History IVDU (intravenous drug user) Family History Family history of problems with anesthesia: No Surgical History History of Problems with Anesthesia: No Social History Social History Household Members: Friend(s) Housing: Homeless Do you presently have visiting nurse or other home services: No Comment: independent in room Patient Tobacco Use Status: Never used Tobacco e-Cigarette/Vaping Use: Never Used Substance Use Type: Crack/Cocaine and Heroin service: No Meds Allergies Allergy/AdvReac Type Severity Reaction Status Date / Time No Known Allergies Allergy Verified 05/08/25 13:53 Active Medications: Current Medications Acetaminophen (Acetaminophen 325 Mg Tablet) 650 mg PO Q6H PRN PRN Reason: Pain, Mild 1-3,fever,headache Last Admin: 05/10/25 16:48 Dose: 650 mg Calcium Carbonate (Calcium Carbonate 750 Mg Tab.Chew) 750 mg PO Q4H PRN PRN Reason: Heartburn Enoxaparin Sodium (Enoxaparin Sodium 40 Mg/0.4 Ml Syringe) 40 mg SUBCUT Q24H [facility] Last Admin: 05/12/25 09:51 Dose: Not Given Ferrous Sulfate (Ferrous Sulfate 324 Mg Tablet.Dr) 324 mg PO BIDWM [facility] Last Admin: 05/12/25 08:51 Dose: 324 mg Hydromorphone HCl (Hydromorphone Hcl 1 Mg/Ml Syringe) 1 mg IVPUSH Q3H PRN; Protocol PRN Reason: Pain, Severe (Pain Scale 7-10) Last Admin: 05/12/25 13:18 Dose: 1 mg Piperacillin Sod/Tazobactam (Sod 3.375 gm/ Sodium Chloride) 50 mls @ 100 mls/hr IV Q6H [facility] Last Infusion: 05/12/25 09:44 Dose: Infused Vancomycin HCl 1,500 mg/ (Sodium Chloride) 500 mls @ 333.333 mls/hr IV Q24H [facility] Last Admin: 05/12/25 15:12 Dose: 333.33 mls/hr Lactated Ringer's (Lr) 1,000 mls @ 80 mls/hr IVCONT .[id number] [facility] Last Admin: 05/12/25 15:13 Dose: 80 mls/hr Magnesium Hydroxide (Milk Of Magnesia 30 Ml Oral.Susp) 30 ml PO DAILY PRN PRN Reason: Constipation Melatonin (Melatonin 3 Mg Tablet) 6 mg PO BEDTIME PRN PRN Reason: Insomnia Last Admin: 05/11/25 21:42 Dose: 6 mg Methadone HCl (Methadone Hcl 20 Mg/2 Ml Oral.Conc) 50 mg PO DAILY@0800 [facility] Last Admin: 05/12/25 08:51 Dose: 50 mg Ondansetron HCl (Ondansetron Hcl 4 Mg/2 Ml Vial) 4 mg IVPUSH Q8H PRN PRN Reason: Nausea and Vomiting Last Admin: 05/11/25 09:27 Dose: 4 mg Oxycodone HCl (Oxycodone Hcl Immed Release 5 Mg Tablet) 5 mg PO Q6H PRN PRN Reason: Pain, Moderate(Pain Scale 4-6) Last Admin: 05/11/25 16:11 Dose: 5 mg Oxycodone HCl (Oxycodone Hcl Immed Release 5 Mg Tablet) 5 mg PO Q4H PRN PRN Reason: Pain, Moderate(Pain Scale 4-6) Last Admin: 05/12/25 03:33 Dose: 5 mg Pharmacy Consult (Consult Rx Vancomycin Dosing) 1 each MISCELLANE DAILY PRN PRN Reason: Consult order Sodium Chloride (0.9 % Sodium Chloride Flush 3 Ml Syringe) 3 ml IVFLUSH QSHIFT [facility] Last Admin: 05/12/25 08:55 Dose: 3 ml Home Medications ?Medication ?Instructions ?Recorded ?Confirmed ?Last Taken ?Type No Known Home Meds 05/08/25 05/08/25 Unknown History Exam Height,Weight and Vital Signs: Height 5 ft 10 in Weight 79.4 kg Last Vital Signs Temp 99.4 F 05/12/25 14:59 Pulse 56 05/12/25 14:59 Resp 16 05/12/25 14:59 BP 156/85 H 05/12/25 14:59 Pulse Ox 97 05/12/25 14:59 O2 Del Method Room Air 05/12/25 14:59 O2 Flow Rate 6 05/08/25 15:24 Pertinent Lab Results Pertinent Lab Results: Laboratory Tests 05/08/25 05/09/2525 07:26 06:06 17:15 WBC 15.6 H 16.5 H RBC 3.77 L 4.02 L Hgb 8.3 L 8.9 L Hct 26.3 L 28.2 L MCV 69.8 L 70.1 L MCH 22.0 L 22.1 L MCHC 31.6 31.6 RDW 15.2 15.3 Plt Count 171 229 D MPV 8.4 L 8.9 L Immature Gran % (Auto) 2.7 H 0.9 H Neut % (Auto) 79.7 H 83.6 H Lymph % (Auto) 6.7 L 6.4 L Kerr % (Auto) 10.7 8.9 Eos % (Auto) 0.1 0.0 Baso % (Auto) 0.1 0.2 Lymph # (Auto) 1.1 L 1.1 L Kerr # (Auto) 1.7 H 1.5 H Eos # (Auto) 0.0 0.0 Baso # (Auto) 0.0 0.0 Abs Immat Gran (auto) 0.42 H 0.15 H Absolute Neuts (auto) 12.4 H 13.8 H Absolute Nucleated RBC 0.000 0.000 Nucleated RBC % (auto) 0.0 0.0 Smear Tech's Comments VERIFIED ESR 74 H Hold Purple Top Sodium 131 L 138 Potassium 3.6 3.9 Chloride 102 107 Carbon Dioxide 24 25 Anion Gap 9 L 10 L BUN 7 L 7 L Creatinine 0.65 0.64 Estim Creat Clear Calc 155.9 158.4 Estimated GFR > 60 > 60 Random Glucose 131 H 144 H Lactic Acid 1.4 Calcium 8.8 8.6 Iron 8 L TIBC 255 % Saturation 3 L Unsat Iron Binding 247 Ferritin 182 Total Bilirubin 0.5 AST 43 H ALT 32 Alkaline Phosphatase 93 Total Creatine Kinase 532 H 684 H C-Reactive Protein 24.83 H Total Protein 6.3 L Albumin 3.3 L Random Vancomycin 6.6 L Hepatitis C Ab (EIA) HIV 1&2 Ab/P24 Ag 4thGn 05/10/25 05/10/25 05/11/25 05:52 17:32 05:37 WBC 14.5 H RBC 4.07 L Hgb 8.9 L Hct 28.0 L MCV 68.8 L MCH 21.9 L MCHC 31.8 RDW 15.5 Plt Count 329 D MPV 8.9 L Immature Gran % (Auto) 1.0 H Neut % (Auto) 79.4 H Lymph % (Auto) 8.6 L Kerr % (Auto) 10.6 Eos % (Auto) 0.1 Baso % (Auto) 0.3 Lymph # (Auto) 1.3 Kerr # (Auto) 1.5 H Eos # (Auto) 0.0 Baso # (Auto) 0.0 Abs Immat Gran (auto) 0.14 H Absolute Neuts (auto) 11.5 H Absolute Nucleated RBC 0.000 Nucleated RBC % (auto) 0.0 Smear Tech's Comments VERIFIED ESR Hold Purple Top Sodium 139 Potassium 3.3 Chloride 108 Carbon Dioxide 22 Anion Gap 12 BUN 11 Creatinine 0.58 0.97 Estim Creat Clear Calc 174.8 104.5 Estimated GFR > 60 > 60 Random Glucose 108 Lactic Acid Calcium 8.3 L Iron TIBC % Saturation Unsat Iron Binding Ferritin Total Bilirubin AST ALT Alkaline Phosphatase Total Creatine Kinase 98 C-Reactive Protein Total Protein Albumin Random Vancomycin 12.9 L Hepatitis C Ab (EIA) Reactive H HIV 1&2 Ab/P24 Ag 4thGn Nonreactive 05/11/25 05/12/25 05/12/25 13:19 05:47 07:02 WBC RBC Hgb Hct MCV MCH MCHC RDW Plt Count MPV Immature Gran % (Auto) Neut % (Auto) Lymph % (Auto) Kerr % (Auto) Eos % (Auto) Baso % (Auto) Lymph # (Auto) Kerr # (Auto) Eos # (Auto) Baso # (Auto) Abs Immat Gran (auto) Absolute Neuts (auto) Absolute Nucleated RBC Nucleated RBC % (auto) Smear Tech's Comments ESR Hold Purple Top SEE NOTE Sodium Potassium Chloride Carbon Dioxide Anion Gap BUN Creatinine 1.04 Estim Creat Clear Calc 97.4 Estimated GFR > 60 Random Glucose Lactic Acid Calcium Iron TIBC % Saturation Unsat Iron Binding Ferritin Total Bilirubin AST ALT Alkaline Phosphatase Total Creatine Kinase C-Reactive Protein Total Protein Albumin Random Vancomycin 13.3 L Hepatitis C Ab (EIA) HIV 1&2 Ab/P24 Ag 4thGn 05/12/25 13:10 WBC RBC Hgb Hct MCV MCH MCHC RDW Plt Count MPV Immature Gran % (Auto) Neut % (Auto) Lymph % (Auto) Kerr % (Auto) Eos % (Auto) Baso % (Auto) Lymph # (Auto) Kerr # (Auto) Eos # (Auto) Baso # (Auto) Abs Immat Gran (auto) Absolute Neuts (auto) Absolute Nucleated RBC Nucleated RBC % (auto) Smear Tech's Comments ESR Hold Purple Top Sodium Potassium Chloride Carbon Dioxide Anion Gap BUN Creatinine Estim Creat Clear Calc Estimated GFR Random Glucose Lactic Acid Calcium Iron TIBC % Saturation Unsat Iron Binding Ferritin Total Bilirubin AST ALT Alkaline Phosphatase Total Creatine Kinase C-Reactive Protein Total Protein Albumin Random Vancomycin 15.9 Hepatitis C Ab (EIA) HIV 1&2 Ab/P24 Ag 4thGn Airway Mallampati Class: II TM Dist: >3cm Neck ROM: Full Loose/Missing/Broken Teeth: No Heart: RRR Lungs: CTA Assessment and Plan Assessment Anesthesia Assessment: Anesthesia Plan Discussed and Chart Reviewed Final Anesthetic Review Family History of Problems with Anesthesia: No History of Problems with Anesthesia: No NPO: Yes ASA Class: II Final Preanesthetic Review: No Changes in Pt Med Stat, Meds/Allgs Chart Reviewed, Consent Obtained/Reviewed and Anes Risks/Benef Reviewed Patient Risk: Intermediate Procedure Risk: Low Anesthetic Plan Anesthetic Plan: GA Disposition: Standard PACU
[2025-05-13 03:00] VITALS: BP 138/65; PULSE 56; RESP 17; TEMP 36.6; O2SAT 100
[2025-05-13 06:20] LABS: Creatinine Clr Calc Pharmacy 95.6; Estimated Glomerular Filt Rate > 60
[2025-05-13 07:00] VITALS: BP 105/76; PULSE 56; RESP 16; TEMP 36.6; O2SAT 97
[2025-05-13] MEDS: Ferrous Sulfate 324 MG TABLET.DR PO ×2 (07:11→17:08)
[2025-05-13] MEDS: methADONE HCl 20 MG/2 ML ORAL.CONC 50 MG PO (07:12)
[2025-05-13] MEDS: Lactated Ringers 1,000 ML 80 ML IVCONT ×2 (07:13→22:28)
[2025-05-13] MEDS: oxyCODONE HCl Immed Release 5 MG TABLET PO ×3 (07:50→22:26)
--- NOTE | 2025-05-13 08:29 | HO.POSTANES ---
Post Anesthesia Evaluation Post Anesthesia Evaluation Date of Service: 05/13/25 Vital Signs: Vital Signs Temp Pulse Resp BP Pulse Ox O2 Del Method 05/13/25 07:00 97.8 F 56 16 105/76 97 Room Air 05/13/25 03:00 97.8 F 56 17 138/65 100 Room Air 05/12/25 23:00 97.8 F 60 16 129/63 98 Room Air Anesthesia: General Mental Status: Awake Pain Control: Satisfactory Nausea/Vomiting: None Hydration: Adequate Anesthesia-Related Issues: No Anes. Related Issues
[2025-05-13 11:00] VITALS: BP 99/68; PULSE 57; RESP 16; TEMP 36.2; O2SAT 98
--- NOTE | 2025-05-13 12:46 | P.PNIM_ITS ---
Subjective Subjective Date of Service: 05/13/25 Interval History: Follow up for left forearm cellulitis with abscess from IVDU Continues to experience pain, swelling, and erythema of left forearm Review of Systems Review of Systems: Yes all other systems are reviewed and are negative Physical Exam 2 Exam: Exam: Appearing in no acute distress lung sounds are clear to auscultation heart regular rate rhythm, clear S1, S2 positive bowel sounds, abdomen is soft, nontender neuro patient is alert x3, no focal deficits Left arm dressing intact Vital Signs: Vital Signs: Last Vital Signs Temp 97.1 F 05/13/25 11:00 Pulse 57 05/13/25 11:00 Resp 16 05/13/25 11:00 BP 99/68 05/13/25 11:00 Pulse Ox 98 05/13/25 11:00 O2 Del Method Room Air 05/13/25 11:00 O2 Flow Rate 6 05/08/25 15:24 BMI result Body Mass Index 25.1 Objective Data Active Medications Acetaminophen (Acetaminophen 325 Mg Tablet) 650 mg PO Q6H PRN PRN Reason: Pain, Mild 1-3,fever,headache Last Admin: 05/13/25 07:50 Dose: 650 mg Documented By: CUCO Calcium Carbonate (Calcium Carbonate 750 Mg Tab.Chew) 750 mg PO Q4H PRN PRN Reason: Heartburn Enoxaparin Sodium (Enoxaparin Sodium 40 Mg/0.4 Ml Syringe) 40 mg SUBCUT Q24H [facility] Last Admin: 05/13/25 09:30 Dose: 40 mg Documented By: CUCO Ferrous Sulfate (Ferrous Sulfate 324 Mg Tablet.) 324 mg PO BIDWM [facility] Last Admin: 05/13/25 07:11 Dose: 324 mg Documented By: CUCO Hydromorphone HCl (Hydromorphone Hcl 1 Mg/Ml Syringe) 1 mg IVPUSH Q3H PRN; Protocol PRN Reason: Pain, Severe (Pain Scale 7-10) Last Admin: 05/13/25 04:15 Dose: 1 mg Documented By: BRITTANY Lactated Ringer's (Lr) 1,000 mls @ 80 mls/hr IVCONT .[id number] [facility] Last Admin: 05/13/25 07:13 Dose: 80 mls/hr Documented By: CUCO Ceftriaxone Sodium 2 gm/ (Sodium Chloride) 50 mls @ 100 mls/hr IV Q24H [facility] Last Infusion: 05/13/25 10:10 Dose: Infused Documented By: CUCO Clindamycin Phosphate (Cleocin) 900 mg in 50 mls @ 50 mls/hr IV Q8H [facility] Last Infusion: 05/13/25 11:49 Dose: Infused Documented By: CUCO Magnesium Hydroxide (Milk Of Magnesia 30 Ml Oral.Susp) 30 ml PO DAILY PRN PRN Reason: Constipation Melatonin (Melatonin 3 Mg Tablet) 6 mg PO BEDTIME PRN PRN Reason: Insomnia Last Admin: 05/11/25 21:42 Dose: 6 mg Documented By: MIRIAM-DESBRIE Methadone HCl (Methadone Hcl 20 Mg/2 Ml Oral.Conc) 50 mg PO DAILY@0800 [facility] Last Admin: 05/13/25 07:12 Dose: 50 mg Documented By: CUCO Co-signed By: JASPREET Ondansetron HCl (Ondansetron Hcl 4 Mg/2 Ml Vial) 4 mg IVPUSH Q8H PRN PRN Reason: Nausea and Vomiting Last Admin: 05/11/25 09:27 Dose: 4 mg Documented By: CAROL Oxycodone HCl (Oxycodone Hcl Immed Release 5 Mg Tablet) 5 mg PO Q4H PRN PRN Reason: Pain, Moderate(Pain Scale 4-6) Last Admin: 05/13/25 07:50 Dose: 5 mg Documented By: CUCO Sodium Chloride (0.9 % Sodium Chloride Flush 3 Ml Syringe) 3 ml IVFLUSH QSHIFT [facility] Last Admin: 05/13/25 07:14 Dose: Not Given Documented By: CUCO Non-Admin Reason: IV Running Labs 05/11/25 05:37 05/13/25 05:14 Labs: Laboratory Results - last 24 hr 05/12/25 05/13/25 13:10 05:14 Hold Purple Top SEE NOTE Estim Creat Clear Calc 95.6 Estimated GFR > 60 Random Vancomycin 15.9 Microbiology Microbiology Results: Microbiology 05/08/25 07:38 Blood Culture - Final Blood - Venous No growth after 5 days. 05/08/25 07:26 Blood Culture - Final Blood - Venous No growth after 5 days. Assessment and Plan (1) Cellulitis of arm, left: Status: Acute (2) Abscess of left forearm: Status: Acute Plan 39 year old male with history of IVDU who presents with several days of left arm and hard swelling, redness and pain, admitted for cellulitis and abscess Sepsis due to Left arm/hand cellulitis due to underlying IVDU with recent relapse/injection of heroin/cocaine into affected extremity area of cellulitis involves entire hand and extends to the upper arm covering more then 50 % of the LUE no evidence of compartment syndrome at this time s/p I and D of Left forearm 05/08, 05/12 continue IV vanco and zosyn started in the ED ortho following pain control with dilaudid and oxycodone. Methadone Mild rhabdomyolysis, resolved CPK WNL after IVF Mild Hyponatremia, resolved normalized after IVF Iron-deficiency anemia unknown chronicity with no baseline H/H for comparison above transfusion threshold at this time iron studies with low iron at 8 and saturation at 3% iron supplementation Elevated blood pressure readings likely due to withdawal and pain monitor IVDU addiction medicine consult restarted on methadone; continue 50mg daily dvt ppx - lovenox code status - full code Quality Stroke Does the patient have a stroke diagnosis?: No VTE Prior VTE?: No VTE Risk Level:: Medical - moderate - high VTE Device Contraindication: N/A - Device Ordered VTE Drug Contraindication: N/A - Med Ordered
[2025-05-13] MEDS: 0.9 % Sodium Chloride Flush 3 ML SYRINGE IVFLUSH (14:55)
--- NOTE | 2025-05-13 14:59 | HO.ADDICTPRO ---
Subjective Subjective Date of Service: 05/13/25 Reason For Visit: cellulitis Interim History: Patient seen in follow up for OUD Current methadone dose 50mg QD He is awake, alert, pleasant and engaged in interview He states that he is comfortable at current methadone dose and requesting not to increase dose any further. He states that he had been in recovery since 2016, up until 6 months ago when he returned to use. He states that he had never used IV until very recently and states he was using new supplies each time. He was incarcerated for approx a month and started on methadone there He would like to continue when he discharges Reports pain is much better and he appears overall comfortable Review of Systems Acute medical concerns: Yes Review of Systems Constitutional: Reports as per HPI Mental Status Exam Mental Status Exam Level of Consciousness: Awake, Appropriate and Alert Patient Behavior: Appropriate and Cooperative Affect Description: Appropriate Thought Process: Intact Thought Content: positive for Intact Judgement: Good Diagnostics Vital Signs (24Hr): Vital Signs - 24 hr 05/12/25 17:43 05/12/25 17:48 05/12/25 17:53 Temperature 98.1 F Pulse Rate 70 63 57 Respiratory Rate 12 12 19 Blood Pressure 157/72 H 166/82 H 175/88 H Pulse Oximetry 96 97 96 Oxygen Delivery Method Room Air Room Air Room Air 05/12/25 17:56 05/12/25 18:24 05/12/25 19:28 Temperature 98.1 F 97.7 F 97.3 F Pulse Rate 63 59 65 Respiratory Rate 13 18 16 Blood Pressure 184/84 H 172/80 H 158/72 H Pulse Oximetry 97 98 100 Oxygen Delivery Method Room Air Room Air Room Air 05/12/25 23:00 05/13/25 03:00 05/13/25 07:00 Temperature 97.8 F 97.8 F 97.8 F Pulse Rate 60 56 56 Respiratory Rate 16 17 16 Blood Pressure 129/63 138/65 105/76 Pulse Oximetry 98 100 97 Oxygen Delivery Method Room Air Room Air Room Air 05/13/25 11:00 Temperature 97.1 F Pulse Rate 57 Respiratory Rate 16 Blood Pressure 99/68 Pulse Oximetry 98 Oxygen Delivery Method Room Air BMI result Body Mass Index 25.1 Labs 05/11/25 05:37 05/13/25 05:14 Labs: Laboratory Results - last 48 hr 05/12/25 05/12/25 05/12/25 05:47 07:02 13:10 Hold Purple Top SEE NOTE Creatinine 1.04 Estim Creat Clear Calc 97.4 Estimated GFR > 60 Random Vancomycin 15.9 05/13/25 05:14 Hold Purple Top SEE NOTE Creatinine 1.06 Estim Creat Clear Calc 95.6 Estimated GFR > 60 Random Vancomycin Imaging Radiology Impressions: ITS Impressions Forearm X-Ray 05/08/25 08:15 IMPRESSION: Diffuse soft tissue swelling of the distal arm and proximal forearm. No osseous abnormality is identified. Electronically signed by: Anthony Ortez MD 05/08/2025 08:24 AM EST RP Humerus X-Ray 05/08/25 08:18 IMPRESSION: Diffuse soft tissue swelling of the distal arm and proximal forearm. No osseous abnormality is identified. Electronically signed by: Anthony Ortez MD 05/08/2025 08:24 AM EST RP Venous Duplex 05/08/25 08:31 IMPRESSION: No definite evidence of acute DVT in the left upper extremity. Electronically signed by: Anthony Ortez MD 05/08/2025 09:00 AM EST RP Forearm CT 05/08/25 11:03 IMPRESSION: Large multiloculated abscess(es) in the flexor compartment muscles of the left forearm. Diffuse subcutaneous edema. Electronically signed by: Kely Pink MD 05/08/2025 01:06 PM EST RP Hand CT 05/08/25 11:03 IMPRESSION: Diffuse subcutaneous edema. Fluid seen in the carpal tunnel surrounding the flexor tendon sheath. No abscess. Electronically signed by: Kely Pink MD 05/08/2025 01:05 PM EST RP Medications Medications Current Medications Acetaminophen (Acetaminophen 325 Mg Tablet) 650 mg PO Q6H PRN PRN Reason: Pain, Mild 1-3,fever,headache Last Admin: 05/13/25 14:51 Dose: 650 mg Calcium Carbonate (Calcium Carbonate 750 Mg Tab.Chew) 750 mg PO Q4H PRN PRN Reason: Heartburn Enoxaparin Sodium (Enoxaparin Sodium 40 Mg/0.4 Ml Syringe) 40 mg SUBCUT Q24H [facility] Last Admin: 05/13/25 09:30 Dose: 40 mg Ferrous Sulfate (Ferrous Sulfate 324 Mg Tablet.) 324 mg PO BIDWM [facility] Last Admin: 05/13/25 07:11 Dose: 324 mg Hydromorphone HCl (Hydromorphone Hcl 1 Mg/Ml Syringe) 1 mg IVPUSH Q3H PRN; Protocol PRN Reason: Pain, Severe (Pain Scale 7-10) Last Admin: 05/13/25 04:15 Dose: 1 mg Lactated Ringer's (Lr) 1,000 mls @ 80 mls/hr IVCONT .[id number] [facility] Last Admin: 05/13/25 14:56 Dose: Not Given Ceftriaxone Sodium 2 gm/ (Sodium Chloride) 50 mls @ 100 mls/hr IV Q24H [facility] Last Infusion: 05/13/25 10:10 Dose: Infused Clindamycin Phosphate (Cleocin) 900 mg in 50 mls @ 50 mls/hr IV Q8H [facility] Last Infusion: 05/13/25 11:49 Dose: Infused Magnesium Hydroxide (Milk Of Magnesia 30 Ml Oral.Susp) 30 ml PO DAILY PRN PRN Reason: Constipation Melatonin (Melatonin 3 Mg Tablet) 6 mg PO BEDTIME PRN PRN Reason: Insomnia Last Admin: 05/11/25 21:42 Dose: 6 mg Methadone HCl (Methadone Hcl 20 Mg/2 Ml Oral.Conc) 50 mg PO DAILY@0800 [facility] Last Admin: 05/13/25 07:12 Dose: 50 mg Ondansetron HCl (Ondansetron Hcl 4 Mg/2 Ml Vial) 4 mg IVPUSH Q8H PRN PRN Reason: Nausea and Vomiting Last Admin: 05/11/25 09:27 Dose: 4 mg Oxycodone HCl (Oxycodone Hcl Immed Release 5 Mg Tablet) 5 mg PO Q4H PRN PRN Reason: Pain, Moderate(Pain Scale 4-6) Last Admin: 05/13/25 14:55 Dose: 5 mg Sodium Chloride (0.9 % Sodium Chloride Flush 3 Ml Syringe) 3 ml IVFLUSH QSHIFT [facility] Last Admin: 05/13/25 14:55 Dose: 3 ml Allergies Allergies Allergy/AdvReac Type Severity Reaction Status Date / Time No Known Allergies Allergy Verified 05/08/25 13:53 Assessment & Plan Assessment & Plan (1) Opioid use disorder: Status: Acute Code(s): F11.90 - Opioid use, unspecified, uncomplicated Assessment and Plan: would like methadone dose to remain at 50mg QD encouraged patient to advise t/w or financial manager should he want to increase dose further [employer] to coordinate referral to [facility] Total time managing care of this patient today __30__ minutes.
[2025-05-13 15:15] VITALS: BP 116/77; PULSE 55; RESP 18; TEMP 36.2; O2SAT 99
--- NOTE | 2025-05-13 15:50 | MHC.RECOVRN ---
TW met with pt in 371-1 to offer continued recovery support. Pt reports pain and qwithdrawal
--- NOTE | 2025-05-13 16:06 | MHC.RECOVRN ---
TW met with pt in 371 to offer continued recovery support Pt reports withdrawal and cravings are managed with methadone and states his pain is adequately managed with pain medication. He denies complaints at this time.? Pt is goal oriented and future focused. ?I want to maintain my sobriety?.? Pt plans to continue methadone dosing at [facility] and voiced interest in attempting to contact [facility] in [place] for potential placement, however, he is unable to recall the name of the facility at this time.? ACS Team available as needed for ongoing support
--- NOTE | 2025-05-13 16:53 | PM.PNORT ---
Subjective Subjective Date of Service: 05/13/25 Interval history: Postop day 1 status post repeat I and D of left forearm Patient resting comfortably in bed today Pain well managed No acute events overnight or this morning Reports pain and swelling both vastly improved from prior to repeat I and D No other acute complaints or concerns at this time Physical Exam Vital Signs: Vital Signs: Last Vital Signs Temp 97.2 F 05/13/25 15:15 Pulse 55 05/13/25 15:15 Resp 18 05/13/25 15:15 BP 116/77 05/13/25 15:15 Pulse Ox 99 05/13/25 15:15 O2 Del Method Room Air 05/13/25 15:15 O2 Flow Rate 6 05/08/25 15:24 BMI result Body Mass Index 25.1 Extrem: Other: Patient is alert, oriented, and in no acute distress. Neuro: Diminished sensation of the tips of all digits of the left hand at this time Vascular: Cap refill brisk Pain: minimal tenderness to palpation and edema along the medial epicondylar area---no longer circumferential swelling , redness or tension No evidence of abscess formation at this area compartment is soft Significantly Improved swelling along the distal radius and incision site Mild serosanguineous drainage noted with drains pulled in incisions on left hand No pain with axial loading of the left wrist No tenderness to palpation of the digits of the left hand ROM: Patient is able to flex digits of the left hand, is able to get close to making a closed fist at this time Psych: Appears grossly normal Affect normal Attitude cooperative Procedures Date of Service Date of Service: 05/13/25 Progress Note: A&P Assessment and plan (1) Abscess of left forearm: Status: Acute (2) Cellulitis of arm, left: Status: Acute Plan 1. Status post irrigation and debridement of the left forearm Date of injury 05/08/2025 Dates of surgery on Case was discussed with Dr. Mariano, and a collaborative treatment plan was formed: Continue IV antibiotics Continue pain management Drain pulled and dressing changed today Patient has improved very significantly from prior to repeat surgery Dressing change tomorrow and reassessment in the morning to determine stability and further treatment course Patient understands this and is amenable to this plan Time Spent With Patient Time: Total time managing care of this patient today ____ minutes. Quality Stroke Does the patient have a stroke diagnosis?: No VTE Prior VTE?: No VTE Risk Level:: Medical - moderate - high VTE Device Contraindication: N/A - Device Ordered VTE Drug Contraindication: N/A - Med Ordered
[2025-05-13 19:00] VITALS: BP 116/81; PULSE 63; RESP 18; TEMP 36.7; O2SAT 98
[2025-05-13 23:00] VITALS: BP 142/84; PULSE 58; RESP 16; TEMP 36.7; O2SAT 98
[2025-05-14] MEDS: oxyCODONE HCl Immed Release 5 MG TABLET PO ×3 (02:57→15:11)
[2025-05-14 03:00] VITALS: BP 120/76; PULSE 58; RESP 16; TEMP 36.7; O2SAT 97
[2025-05-14 07:00] VITALS: BP 129/83; PULSE 53; RESP 14; TEMP 36.7; O2SAT 98
[2025-05-14] MEDS: methADONE HCl 20 MG/2 ML ORAL.CONC 50 MG PO (07:11)
[2025-05-14] MEDS: Ferrous Sulfate 324 MG TABLET.DR PO ×2 (07:12→17:02)
[2025-05-14 08:49] LABS: HCV Log PCR 1.61 Log IU/mL (NOT DETECTED); HepC Viral Load 41 IU/mL (NOT DETECTED)
[2025-05-14 08:49] LABS: HCV Log PCR 1.67 Log IU/mL (NOT DETECTED); HepC Viral Load 47 IU/mL (NOT DETECTED)
--- NOTE | 2025-05-14 09:49 | P.PNIM_ITS ---
Subjective Subjective Date of Service: 05/14/25 Interval History: Follow up for left forearm cellulitis with abscess from IVDU Continues to experience pain, swelling, and erythema of left forearm had dressing change yesterday, still requires another day of IV abx Review of Systems Review of Systems: Yes all other systems are reviewed and are negative Physical Exam 2 Exam: Exam: Appearing in no acute distress lung sounds are clear to auscultation heart regular rate rhythm, clear S1, S2 positive bowel sounds, abdomen is soft, nontender neuro patient is alert x3, no focal deficits Left arm dressing Vital Signs: Vital Signs: Last Vital Signs Temp 98.0 F 05/14/25 07:00 Pulse 53 05/14/25 07:00 Resp 14 05/14/25 07:00 BP 129/83 05/14/25 07:00 Pulse Ox 98 05/14/25 07:00 O2 Del Method Room Air 05/14/25 07:00 O2 Flow Rate 6 05/08/25 15:24 BMI result Body Mass Index 25.1 Objective Data Active Medications Acetaminophen (Acetaminophen 325 Mg Tablet) 650 mg PO Q6H PRN PRN Reason: Pain, Mild 1-3,fever,headache Last Admin: 05/13/25 14:51 Dose: 650 mg Documented By: CUCO Calcium Carbonate (Calcium Carbonate 750 Mg Tab.Chew) 750 mg PO Q4H PRN PRN Reason: Heartburn Enoxaparin Sodium (Enoxaparin Sodium 40 Mg/0.4 Ml Syringe) 40 mg SUBCUT Q24H [facility] Last Admin: 05/13/25 09:30 Dose: 40 mg Documented By: CUCO Ferrous Sulfate (Ferrous Sulfate 324 Mg Tablet.) 324 mg PO BIDWM [facility] Last Admin: 05/14/25 07:12 Dose: 324 mg Documented By: CUCO Hydromorphone HCl (Hydromorphone Hcl 1 Mg/Ml Syringe) 1 mg IVPUSH Q3H PRN; Protocol PRN Reason: Pain, Severe (Pain Scale 7-10) Last Admin: 05/13/25 04:15 Dose: 1 mg Documented By: BRITTANY Lactated Ringer's (Lr) 1,000 mls @ 80 mls/hr IVCONT .[id number] [facility] Last Admin: 05/13/25 22:28 Dose: 80 mls/hr Documented By: BRITTANY Ceftriaxone Sodium 2 gm/ (Sodium Chloride) 50 mls @ 100 mls/hr IV Q24H [facility] Last Infusion: 05/14/25 07:41 Dose: Infused Documented By: CUCO Clindamycin Phosphate (Cleocin) 900 mg in 50 mls @ 50 mls/hr IV Q8H [facility] Last Infusion: 05/14/25 03:02 Dose: Infused Documented By: BRITTANY Magnesium Hydroxide (Milk Of Magnesia 30 Ml Oral.Susp) 30 ml PO DAILY PRN PRN Reason: Constipation Melatonin (Melatonin 3 Mg Tablet) 6 mg PO BEDTIME PRN PRN Reason: Insomnia Last Admin: 05/11/25 21:42 Dose: 6 mg Documented By: MIRIAM-DESBRIE Methadone HCl (Methadone Hcl 20 Mg/2 Ml Oral.Conc) 50 mg PO DAILY@0800 [facility] Last Admin: 05/14/25 07:11 Dose: 50 mg Documented By: CUCO Co-signed By: PIERRE Ondansetron HCl (Ondansetron Hcl 4 Mg/2 Ml Vial) 4 mg IVPUSH Q8H PRN PRN Reason: Nausea and Vomiting Last Admin: 05/11/25 09:27 Dose: 4 mg Documented By: CAROL Oxycodone HCl (Oxycodone Hcl Immed Release 5 Mg Tablet) 5 mg PO Q4H PRN PRN Reason: Pain, Moderate(Pain Scale 4-6) Last Admin: 05/14/25 02:57 Dose: 5 mg Documented By: BRITTANY Sodium Chloride (0.9 % Sodium Chloride Flush 3 Ml Syringe) 3 ml IVFLUSH QSHIFT [facility] Last Admin: 05/14/25 06:53 Dose: Not Given Documented By: CUCO Non-Admin Reason: IV Running Labs 05/11/25 05:37 05/13/25 05:14 Labs: Laboratory Results - last 24 hr 05/10/25 05/11/25 05:52 05:37 Hep C Viral Load 47 H 41 H Hep C Viral Load Log 1.67 H 1.61 H Microbiology Microbiology Results: Microbiology 05/08/25 07:38 Blood Culture - Final Blood - Venous No growth after 5 days. 05/08/25 07:26 Blood Culture - Final Blood - Venous No growth after 5 days. Assessment and Plan (1) Cellulitis of arm, left: Status: Acute (2) Abscess of left forearm: Status: Acute Plan 39 year old male with history of IVDU who presents with several days of left arm and hard swelling, redness and pain, admitted for cellulitis and abscess Sepsis due to Left arm/hand cellulitis due to underlying IVDU with recent relapse/injection of heroin/cocaine into affected extremity area of cellulitis involves entire hand and extends to the upper arm covering more then 50 % of the LUE no evidence of compartment syndrome at this time s/p I and D of Left forearm 05/08, 05/12 IV vanco and zosyn switched to rocephin and clinda as per ID ortho following pain control with dilaudid and oxycodone. Methadone Mild rhabdomyolysis, resolved CPK WNL after IVF Mild Hyponatremia, resolved normalized after IVF Iron-deficiency anemia unknown chronicity with no baseline H/H for comparison above transfusion threshold at this time iron studies with low iron at 8 and saturation at 3% iron supplementation Elevated blood pressure readings likely due to withdawal and pain monitor IVDU addiction medicine consult restarted on methadone; continue 50mg daily Patient is homeless, CM to refer to walk in clinic for assistance with wound care when discharged dvt ppx - lovenox code status - full code Quality Stroke Does the patient have a stroke diagnosis?: No VTE Prior VTE?: No VTE Risk Level:: Medical - moderate - high VTE Device Contraindication: N/A - Device Ordered VTE Drug Contraindication: N/A - Med Ordered
[2025-05-14 11:00] VITALS: BP 113/72; PULSE 60; RESP 18; TEMP 36.6; O2SAT 97
--- NOTE | 2025-05-14 11:50 | MHC.CM.PN ---
Per MD rounds patient not medically cleared for dc at this time, but likely tomorrow. CM met with patient to discuss DC plan. He would like to return to [facility] on [facility] w/ his . He does not have a PCP, but will start calling around for an appt. Provided [facility] schedule for assistance w/ wound care. He should be sent w/ supplies, as his can also assist w/ wound care. Will need shuttle transport.
--- NOTE | 2025-05-14 12:30 | MHC.RECOVRN ---
Addendum entered by Lori Desai RN 05/14/25 14:55: Pt provided with directions to [facility] clinic for community methadone dosing as well as information and directions to [facility] for additional peer support. Original Note: Met with pt in 371-1 to offer ongoing support Pt declined referral for CSS placement upon discharge. He does not wish to be away from his family, however he did accept a referral for recovery coaching. Pt states withdrawal symptoms continued to be well managed and he denies drug cravings. He reports looking forward to discharge and working on my recovery ACS team to continue to follow and available for support as needed.
--- NOTE | 2025-05-14 12:51 | PM.PNORT ---
Subjective Subjective Date of Service: 05/14/25 Interval history: Postop day 2 status post repeat I and D of left forearm Patient resting comfortably in bed today Pain well managed No acute events overnight or this morning Reports pain and swelling both vastly improved from prior to repeat I and D, as well as a slight improvement from yesterday No other acute complaints or concerns at this time Physical Exam Vital Signs: Vital Signs: Last Vital Signs Temp 97.8 F 05/14/25 11:00 Pulse 60 05/14/25 11:00 Resp 18 05/14/25 11:00 BP 113/72 05/14/25 11:00 Pulse Ox 97 05/14/25 11:00 O2 Del Method Room Air 05/14/25 11:00 O2 Flow Rate 6 05/08/25 15:24 BMI result Body Mass Index 25.1 Extrem: Other: Patient is alert, oriented, and in no acute distress. Neuro: Diminished sensation of the tips of all digits of the left hand at this time Vascular: Cap refill brisk Pain: minimal tenderness to palpation and edema along the medial epicondylar area---no longer circumferential swelling , redness or tension No evidence of abscess formation at this area compartment is soft Significantly Improved swelling along the distal radius and incision site Significant serosanguineous drainage on dressing, no active drainage at this time No purulence No pain with axial loading of the left wrist No tenderness to palpation of the digits of the left hand ROM: Patient is able to flex digits of the left hand, is able to get close to making a closed fist at this time Psych: Appears grossly normal Affect normal Attitude cooperative Procedures Date of Service Date of Service: 05/14/25 Progress Note: A&P Assessment and plan (1) Abscess of left forearm: Status: Acute (2) Cellulitis of arm, left: Status: Acute Plan 1. Status post irrigation and debridement of the left forearm Date of injury 05/08/2025 Dates of surgery 05/12/2025 Case was discussed with Dr. Mariano, and a collaborative treatment plan was formed: Continue IV antibiotics Continue pain management Drain pulled and dressing changed today Patient has improved very significantly from prior to repeat surgery Dressing change today I do feel that due to significant drainage being on the dressing, he will likely benefit from being in the hospital for at least 1 more day Patient understands this and is amenable to this plan Time Spent With Patient Time: Total time managing care of this patient today ____ minutes. Quality Stroke Does the patient have a stroke diagnosis?: No VTE Prior VTE?: No VTE Risk Level:: Medical - moderate - high VTE Device Contraindication: N/A - Device Ordered VTE Drug Contraindication: N/A - Med Ordered
[2025-05-14] MEDS: 0.9 % Sodium Chloride Flush 3 ML SYRINGE IVFLUSH (15:11)
[2025-05-14 15:18] VITALS: BP 107/65; PULSE 55; RESP 18; TEMP 36.6; O2SAT 97
[2025-05-14 19:00] VITALS: RESP 18
[2025-05-14 19:40] VITALS: BP 110/60; PULSE 58; RESP 18; TEMP 36.8; O2SAT 97
[2025-05-15] VITALS: BP 115/62; PULSE 63; RESP 18; TEMP 37.2; O2SAT 99
[2025-05-15] MEDS: 0.9 % Sodium Chloride Flush 3 ML SYRINGE IVFLUSH ×2 (01:06→07:22)
[2025-05-15] MEDS: oxyCODONE HCl Immed Release 5 MG TABLET PO (01:08)
[2025-05-15 04:00] VITALS: BP 114/60; PULSE 65; RESP 18; TEMP 36.2; O2SAT 99
[2025-05-15] MEDS: methADONE HCl 20 MG/2 ML ORAL.CONC 50 MG PO (07:22)
[2025-05-15] MEDS: Ferrous Sulfate 324 MG TABLET.DR PO (07:22)
--- NOTE | 2025-05-15 07:44 | PM.PNORT ---
Subjective Subjective Date of Service: 05/15/25 Interval history: Postop day 2 status post repeat I and D of left forearm Patient resting comfortably in bed today Pain well managed No acute events overnight or this morning Reports pain and swelling both vastly improved from prior to repeat I and D, as well as a slight improvement from yesterday No other acute complaints or concerns at this time Physical Exam Vital Signs: Vital Signs: Last Vital Signs Temp 97.1 F 05/15/25 04:00 Pulse 65 05/15/25 04:00 Resp 18 05/15/25 04:00 BP 114/60 05/15/25 04:00 Pulse Ox 99 05/15/25 04:00 O2 Del Method Room Air 05/15/25 04:00 O2 Flow Rate 6 05/08/25 15:24 BMI result Body Mass Index 25.1 Extrem: Other: Patient is alert, oriented, and in no acute distress. Neuro: Diminished sensation of the tips of all digits of the left hand at this time Vascular: Cap refill brisk Pain: minimal tenderness to palpation and edema along the medial epicondylar area---no longer circumferential swelling , redness or tension No evidence of abscess formation at this area compartment is soft Significantly Improved swelling along the distal radius and incision site No drainage soaking through dressing at this time No purulence No pain with axial loading of the left wrist No tenderness to palpation of the digits of the left hand ROM: Patient is able to flex digits of the left hand, is able to get close to making a closed fist at this time Psych: Appears grossly normal Affect normal Attitude cooperative Procedures Date of Service Date of Service: 05/15/25 Progress Note: A&P Assessment and plan (1) Abscess of left forearm: Status: Acute (2) Cellulitis of arm, left: Status: Acute Plan 1. Status post irrigation and debridement of the left forearm Date of injury 05/08/2025 Dates of surgery 05/12/2025 Case was discussed with Dr. Mariano, and a collaborative treatment plan was formed: Continue IV antibiotics Continue pain management If cleared medically, patient may begin transition to p.o. antibiotics and discharge may be explored Patient has improved very significantly from prior to repeat surgery Dressing will be changed by nursing today Patient understands this and is amenable to this plan Time Spent With Patient Time: Total time managing care of this patient today ____ minutes. Quality Stroke Does the patient have a stroke diagnosis?: No VTE Prior VTE?: No VTE Risk Level:: Medical - moderate - high VTE Device Contraindication: N/A - Device Ordered VTE Drug Contraindication: N/A - Med Ordered
[2025-05-15 08:00] VITALS: BP 124/78; PULSE 52; RESP 16; TEMP 36; O2SAT 98
--- NOTE | 2025-05-15 11:10 | P.PNADD_ITS ---
Subjective Subjective Date of Service: 05/15/25 Reason For Visit: cellulitis Interim History: Patient seen in follow up for OUD He is awake, alert, pleasant and engaged in interview Current methadone dose 50mg QD--still feels good on this dose Scheduled to discharge today--reminded patient to communicate with [facility] clinical team should his dose need to be adjusted (increase in cravings) Discussed Hepatitis C +screen with patient He denies any history of hepatitis C. Appearing worried and asking appropriate questions. T/w provided reassurance regarding curative treatment and assured him we would assist with coordinating referral for follow up. Provided education regarding modes of transmission and how it is NOT transmitted. Review of Systems Acute medical concerns: No Review of Systems Constitutional: Reports as per HPI and Reports no additional constitutional complaints Mental Status Exam Mental Status Exam Patient Appearance: Appropriate Level of Consciousness: Awake, Appropriate and Alert Patient Behavior: Appropriate and Cooperative Mood Description: Anxious Affect Description: Appropriate Speech Pattern: Clear Thought Process: Intact Thought Content: positive for Intact Judgement: Good Diagnostics Vital Signs (24Hr): Vital Signs - 24 hr 05/14/25 15:18 05/14/25 19:00 05/14/25 19:40 Temperature 98 F 98.2 F Pulse Rate 55 58 Respiratory Rate 18 18 18 Blood Pressure 107/65 110/60 Pulse Oximetry 97 97 Oxygen Delivery Method Room Air Room Air 05/15/25 00:00 05/15/25 04:00 05/15/25 08:00 Temperature 99.0 F 97.1 F 96.8 F Pulse Rate 63 65 52 Respiratory Rate 18 18 16 Blood Pressure 115/62 114/60 124/78 Pulse Oximetry 99 99 98 Oxygen Delivery Method Room Air Room Air Room Air BMI result Body Mass Index 25.1 Labs 05/11/25 05:37 05/13/25 05:14 Labs: Laboratory Results - last 48 hr 05/10/25 05/11/25 05:52 05:37 Hep C Viral Load 47 H 41 H Hep C Viral Load Log 1.67 H 1.61 H Imaging Radiology Impressions: ITS Impressions Forearm X-Ray 05/08/25 08:15 IMPRESSION: Diffuse soft tissue swelling of the distal arm and proximal forearm. No osseous abnormality is identified. Electronically signed by: Anthony Ortez MD 05/08/2025 08:24 AM [facility] Humerus X-Ray 05/08/25 08:18 IMPRESSION: Diffuse soft tissue swelling of the distal arm and proximal forearm. No osseous abnormality is identified. Electronically signed by: Anthony Ortez MD 05/08/2025 08:24 AM EST RP Venous Duplex 05/08/25 08:31 IMPRESSION: No definite evidence of acute DVT in the left upper extremity. Electronically signed by: Anthony Ortez MD 05/08/2025 09:00 AM EST RP Forearm CT 05/08/25 11:03 IMPRESSION: Large multiloculated abscess(es) in the flexor compartment muscles of the left forearm. Diffuse subcutaneous edema. Electronically signed by: Kely Pink MD 05/08/2025 01:06 PM EST RP Hand CT 05/08/25 11:03 IMPRESSION: Diffuse subcutaneous edema. Fluid seen in the carpal tunnel surrounding the flexor tendon sheath. No abscess. Electronically signed by: Kely Pink MD 05/08/2025 01:05 PM EST RP Medications Medications Current Medications Acetaminophen (Acetaminophen 325 Mg Tablet) 650 mg PO Q6H PRN PRN Reason: Pain, Mild 1-3,fever,headache Last Admin: 05/14/25 09:49 Dose: 650 mg Calcium Carbonate (Calcium Carbonate 750 Mg Tab.Chew) 750 mg PO Q4H PRN PRN Reason: Heartburn Enoxaparin Sodium (Enoxaparin Sodium 40 Mg/0.4 Ml Syringe) 40 mg SUBCUT Q24H [facility] Last Admin: 05/15/25 09:03 Dose: Not Given Ferrous Sulfate (Ferrous Sulfate 324 Mg Tablet.Dr) 324 mg PO BIDWM [facility] Last Admin: 05/15/25 07:22 Dose: 324 mg Ceftriaxone Sodium 2 gm/ (Sodium Chloride) 50 mls @ 100 mls/hr IV Q24H [facility] Last Infusion: 05/15/25 07:53 Dose: Infused Clindamycin Phosphate (Cleocin) 900 mg in 50 mls @ 50 mls/hr IV Q8H [facility] Last Admin: 05/15/25 09:03 Dose: Not Given Magnesium Hydroxide (Milk Of Magnesia 30 Ml Oral.Susp) 30 ml PO DAILY PRN PRN Reason: Constipation Melatonin (Melatonin 3 Mg Tablet) 6 mg PO BEDTIME PRN PRN Reason: Insomnia Last Admin: 05/11/25 21:42 Dose: 6 mg Methadone HCl (Methadone Hcl 20 Mg/2 Ml Oral.Conc) 50 mg PO DAILY@0800 [facility] Last Admin: 05/15/25 07:22 Dose: 50 mg Ondansetron HCl (Ondansetron Hcl 4 Mg/2 Ml Vial) 4 mg IVPUSH Q8H PRN PRN Reason: Nausea and Vomiting Last Admin: 05/15/25 01:06 Dose: 4 mg Oxycodone HCl (Oxycodone Hcl Immed Release 5 Mg Tablet) 5 mg PO Q4H PRN PRN Reason: Pain, Moderate(Pain Scale 4-6) Last Admin: 05/15/25 01:08 Dose: 5 mg Sodium Chloride (0.9 % Sodium Chloride Flush 3 Ml Syringe) 3 ml IVFLUSH QSHIFT [facility] Last Admin: 05/15/25 07:22 Dose: 3 ml Allergies Allergies Allergy/AdvReac Type Severity Reaction Status Date / Time No Known Allergies Allergy Verified 05/08/25 13:53 Assessment & Plan Assessment & Plan (1) Opioid use disorder: Status: Acute Code(s): F11.90 - Opioid use, unspecified, uncomplicated Assessment and Plan: * last dose letter at d/c--referral has been sent to [facility] * take home narcan ordered * Referral for ID follow up coordinated by service worker * information regarding Hepatitis C provided, in Mexican, as requested by patient Total time managing care of this patient today __30__ minutes.
--- NOTE | 2025-05-15 11:34 | PM.DS ---
DS: Providers Provider Date of admission: 05/08/25 09:34 Date of discharge: 05/15/25 Primary care physician: None Physician Consults: 05/08/25 09:42 Consult to Orthopedics Routine Consulting Provider: [facility] Reason for consultation: left hand edema/cellulitis Has provider been notified: No 05/08/25 09:53 Addiction Medicine Provider Routine Consulting Provider: Addiction Covering Reason for consultation: IVDU relapse Has provider been notified: No 05/08/25 15:01 Consult to Wound Care Routine Consulting Provider: [facility] Reason for consultation: right morgan red and raised area, left arm abrasions Has provider been notified: Yes 05/08/25 16:02 Consult to Case Management Routine Comment: 05/10/25 15:46 Consult to Infectious Diseases Routine Consulting Provider: [facility] Reason for consultation: cellulitis/abscess in IVDA Attending physician on discharge: Milka Mcghee Discharging clinician: Kyleigh Mcdonald DS: Diagnosis Discharge Diagnosis (1) Opioid use disorder: Status: Acute (2) Abscess of left forearm: Status: Acute DS: Summary Hospital Course Hospital Course: From H&P on the day of admission This is a 39 year old male with history of IVDU who comes to the emergency department with pain in his left arm. Patient reports 12 years of sobriety and recently relapsed 2-3 weeks ago. He has been injecting both heroin and cocaine. For the past few days he has noted increase in redness and swelling of his left arm. He has had increased pain and decreased range of motion. He denies any associated fever or chills. His pain, redness and swelling continued to progress and today he presented for evaluation. On arrival he had tachycardia, low-grade fever. Lab work significant for elevated white blood cell count of 15.6. Lactic acid within normal limits at 1.4. Inflammatory markers including ESR and CRP were elevated with ESR of 74 and CRP of 24.8. Plan film xray of the humerous and forearm showed diffuse soft tissue swelling of the distal arm and proximal forearm. An ultrasound was negative for DVT in the left upper extremity. Patient received IV Zosyn and vancomycin as well as IV Dilaudid and ketamine. patient reports significant pain. Sepsis due to Left arm/hand cellulitis due to underlying IVDU with recent relapse/injection of heroin/cocaine into affected extremity. The area of cellulitis involved entire hand and extends to the upper arm covering more then 50 % of the LUE. There was no evidence of compartment syndrome. She was seen by orthopedic surgery and underwent I&D of Left forearm 05/08 and 05/12. Was intially treated with IV vanco and zosyn which was switched to rocephin and clinda as per ID recommendation. Swelling of left extremity has improved substantially. Plan for dressing changes every 2 days wiht fluffs, kerlix and carlos bandage. Outpatient follow up appointment scheduled with ortho on Monday. Mild rhabdomyolysis, resolved with IVF. Mild Hyponatremia, resolved after IVF Iron-deficiency anemia unknown chronicity with no baseline H/H for comparison. iron studies with low iron at 8 and saturation at 3%. started on po iron supplementation. did not require blood transfusion. will need outpatient follow up. IVDU seen by addiction medicine. restarted on methadone; continue 50mg daily HCV. new diagnosis, will need outpatient follow up. Time Attestation Discharge Coordination Time (in mins): 36 Quality: Safe Use of Opioids Does Pt have an Active Cancer Diagnosis on the Problem List?: No Quality: Stroke Does the patient have a stroke diagnosis?: No Physical Exam Vital Signs: Vital Signs: Last Vital Signs Temp 96.8 F 05/15/25 08:00 Pulse 52 05/15/25 08:00 Resp 16 05/15/25 08:00 BP 124/78 05/15/25 08:00 Pulse Ox 98 05/15/25 08:00 O2 Del Method Room Air 05/15/25 08:00 O2 Flow Rate 6 05/08/25 15:24 BMI result Body Mass Index 25.1 Const: General: cooperative, comfortable, alert and awake Nutritional Appearance: average body habitus Orientation/consciousness: patient oriented x3 Resp: Effort & Inspection: normal respiratory effort, able to speak in complete sentences, no respiratory distress and no use of accessory muscles Cardio: Rate: bradycardic Neuro: General: patient oriented x3 Extrem: Other: left arm wrapped in carlos bandage Discharge Plan Discharge Anticipated Discharge Date/Time: 05/15/25 11:57 Patient Disposition: Home, Self-Care Discharge Diagnosis: left arm cellulitis with abscess Referrals: [facility] [Other] - 05/16/25 7:00 am Referral Note: Please present at 7am, with last dose letter, for methadone dosing [facility] [Provider Group, Addiction Medicine] - 3-5 Days Referral Note: You are all set to go to [facility] in [address] [place] [address] for methadone dosing following discharge. Please bring your last dose letter! [facility] [Provider Group] - 06/20/25 10:30 am Referral Note: This is an appointment to schedule a primary care doctor. Please bring ID and insurance card if available. If you can not make this appointment, please call and reschedule. Chris Da Silva PA [Physician Leader Assembler, Hand Surgery] - 1 Week Referral Note: 05/21/25 11:45 [facility] Chris Da Silva PA Physician,None [Primary Care Provider, Medical] - 1 Week Discharge Medications: New ferrous sulfate 324 mg (65 mg iron) Tablet,Delayed Release (Dr/Ec) 324 mg PO BIDWM 90 Days Qty: 180 0RF oxycodone 5 mg Tablet 5 mg PO Q6-8H PRN (Reason: pain) Qty: 16 0RF Rx Instructions: Partial Fill upon patient request. amoxicillin 500 mg capsule 500 mg PO TID 10 Days Qty: 30 0RF Discharge Orders: Discharge Order (Routine); Ordered 05/15/25 Ordered By: Kyleigh Mcdonald Activity on Discharge: As tolerated Stand Alone Forms: Patient Portal Discharge page Print Language: Yakut Activity Restrictions/Additional Instructions: Keep incision sites clean, dry, intact at all times Change dressings every other day Dressing change instructions: Apply antibiotic ointment, gauze pads, Kerlix, and Carlos bandage Shower with a plastic bag over hand and wrist and elevate away from the body Change dressing immediately if dressing gets wet Continue working on range of motion of the left elbow, wrist, and hand Follow-up in our office in one-week No lifting with left upper extremity Care Plan Goals: see below Health Concerns: left arm cellulitis with abscess iron deficiency anemia IVDU HCV Plan of Treatment: complete course of antibiotics for left arm - 10 more days follow up with had surgery as scheduled wound care instructions as above iron supplementation as prescribed, monitor for constipation. call to establish PCP provider for monitoring of hepatitis, anemia etc methadone as prescribed Assessment: see discharge summary
[2025-05-15 11:45] VITALS: BP 92/53; PULSE 60; RESP 12; TEMP 36.5; O2SAT 98
[2025-05-15] MEDS: Naloxone HCl Nasal TAKE HOME 4 MG SPRAY 8 MG NOSTRILALT (12:30)
--- NOTE | 2025-05-15 12:39 | MHC.CM.PN ---
Patient medically cleared for dc, self care. Will return to senior living and will be sent w/ wound care supplies. He has the [facility] schedule and will pursue wound care with them. [facility] transport.
== END 2025-05-15 12:44 | disposition home or self-care (01) | DRG 710 ==
LOC: HO.ED 09:30 → HO.EDOVER 09:35 → HO.S3 11:02
PROVIDERS: Nurse Practitioner Acute Care; Nurse Practitioner Psychiatric/Mental Health; Orthopaedic Surgery; Physician Assistant; Registered Nurse Emergency; Admitting Provider Physician Assistant Medical; Emergency Provider Emergency Medicine; Visit Provider Physician Assistant Medical
PROC: 0J9H0ZZ Drainage of Left Lower Arm Subcutaneous Tissue and Fascia, Open Approach (ICD-10-PCS; principal; 2025-05-08 16:00)
DX: A41.9 Sepsis, unspecified organism (principal); M62.82 Rhabdomyolysis; E87.1 Hypo-osmolality and hyponatremia; D50.9 Iron deficiency anemia, unspecified; B19.20 Unspecified viral hepatitis C without hepatic coma; B95.4 Other streptococcus as the cause of diseases classified elsewhere; F11.23 Opioid dependence with withdrawal; L02.414 Cutaneous abscess of left upper limb; L03.114 Cellulitis of left upper limb; Z59.02 Unsheltered homelessness; Z79.899 Other long term (current) drug therapy
CPT/HCPCS: 36415; 73060; 73090; 73201; 80048; 80053; 80202; 82550; 82565; 82728; 83540; 83605; 85025; 85652; 86140; 86803; 87040; 87070; 87147; 87205; 87389; 87522; 93971; 97110; 97165; 99285; J0131; J0696; J0736; J1100; J1171; J1650; J1885; J2003; J2004; J2250; J2405; J2543; J2704; J3010; J3373; J3374; J7120; S9485

== ENCOUNTER → 2025-05-08 07:34 | Outpatient (BNV) | payer MEDICAID, SELFPAY | PROVIDERS: Emergency Provider Emergency Medicine; Visit Provider Radiology Diagnostic Radiology | DX: L02.414 Cutaneous abscess of left upper limb (principal); R22.32 Localized swelling, mass and lump, left upper limb; M79.622 Pain in left upper arm | CPT/HCPCS: 73060; 73090; 73201; 93971 ==

== ENCOUNTER → 2025-05-08 09:34 | Outpatient (BNV) | payer OTHER, SELFPAY | PROVIDERS: Admitting Provider Physician Assistant Medical; Emergency Provider Emergency Medicine; Visit Provider Nurse Practitioner Psychiatric/Mental Health | DX: F11.90 Opioid use, unspecified, uncomplicated (principal) | CPT/HCPCS: 99232 ==

== ENCOUNTER → 2025-05-08 09:34 | Outpatient (BNV) | payer MEDICAID, SELFPAY | PROVIDERS: Admitting Provider Physician Assistant Medical; Emergency Provider Emergency Medicine; Visit Provider Internal Medicine | DX: F11.90 Opioid use, unspecified, uncomplicated (principal); L03.114 Cellulitis of left upper limb; L02.414 Cutaneous abscess of left upper limb | CPT/HCPCS: 99222 ==

== ENCOUNTER → 2025-05-08 09:34 | Outpatient (BNV) | payer MEDICAID, SELFPAY | PROVIDERS: Admitting Provider Physician Assistant Medical; Emergency Provider Emergency Medicine | DX: L02.414 Cutaneous abscess of left upper limb (principal); L03.114 Cellulitis of left upper limb | CPT/HCPCS: 25028; 99024; 99223 ==

== ENCOUNTER → 2025-05-08 09:34 | Outpatient (BNV) | payer MEDICAID, SELFPAY | PROVIDERS: Admitting Provider Physician Assistant Medical; Emergency Provider Emergency Medicine; Visit Provider Nurse Practitioner Family | DX: L03.114 Cellulitis of left upper limb (principal); L02.414 Cutaneous abscess of left upper limb | CPT/HCPCS: 99232; 99233 ==